=== PATIENT | female | born 1990 | race Caucasian/White ===

== ENCOUNTER → 2019-11-16 15:12 | Outpatient (CLI) | payer OTHER, SELFPAY ==
[2019-11-16 16:09] LABS: Add Manual Diff / Slide Review NO; Basophils Absolute Auto 0 /uL (0-100); Basophils Percent Auto 0.4 % (0-2); Eosinophils Absolute Auto 0 /uL (0-450); Eosinophils Percent Auto 0.2 % (2-4); Hematocrit 37.9 % (36-46); Hemoglobin 13.2 g/dL (12.0-16.0); Lymphocytes Absolute Auto 1800 /uL (1100-4500); Lymphocytes Percent Auto 22.5 % (25-40); Mean Corpuscular Hemoglobin 32.2 PG (26-34); Monocytes Absolute Auto 500 /uL (0-900); Monocytes Percent Auto 6.3 % (3-14); Neutrophils Absolute Auto 5800 /uL (1500-7000); Neutrophils Percent Auto 70.6 % (50-75); Platelet Count 311 X10^3/uL (150-400); Red Blood Cell Count 4.12 X10^6/uL (4.0-5.2); Red Cell Distribution Width 12.5 % (11.6-14.8); White Blood Cell Count 8.2 X10^3/uL (4.5-11.0)
[2019-11-16 17:24] LABS: Hepatitis B Surface Antigen NEGATIVE s/c (NEGATIVE); Rubella Antibody IgG 16.4 IU/mL (>15)
[2019-11-16 17:40] LABS: HIV 1 & 2 Ab/Ag 4th Gen Combo NEGATIVE (NEGATIVE); Hep C Virus Ab w/Reflex Quant NEGATIVE s/c (NEGATIVE)
[2019-11-16 18:35] LABS: Appearance Urine UA CLEAR; Bilirubin Urine UA NEGATIVE (NEGATIVE); Color Urine UA YELLOW; Glucose Urine UA NEGATIVE (Negative); Ketones Urine UA NEGATIVE (NEGATIVE); Leukocyte Esterase Urine UA NEGATIVE (NEGATIVE); Nitrite Urine UA NEGATIVE (Negative); Occult Blood Urine UA NEGATIVE (Negative); Protein Urine UA NEGATIVE (Negative); Specific Gravity Urine UA <=1.005 (1.000-1.035); Urobilinogen Urine UA 0.2 E.U./dL (0.2)
[2019-11-16 18:41] LABS: pH Urine UA 6.5 (4.5-8.0)
[2019-11-16 20:13] LABS: Urine N gonorrhoeae NOT DETECTED
[2019-11-16 20:27] LABS: Urine Chlamydia NOT DETECTED
[2019-11-17 04:36] LABS: RPR Screen Non Reactive (Non Reactive)
[2019-11-17 08:41] LABS: Varicella IgG Antibody 1617 index (Immune >165)
== END ==
PROVIDERS: Referring Provider Specialist; Visit Provider Specialist
DX: Z34.01 Encounter for supervision of normal first pregnancy, first trimester (principal); L65.9 Nonscarring hair loss, unspecified; Z3A.08 8 weeks gestation of pregnancy
CPT/HCPCS: 36415; 80055; 81003; 86787; 86803; 86850; 86900; 86901; 87086; 87389; 87491; 87591

== ENCOUNTER → 2019-12-14 17:02 | Outpatient (CLI) | payer OTHER, SELFPAY ==
[2019-12-14 18:45] LABS: BUN Creatinine Ratio 15.1 (6-22); Blood Urea Nitrogen 8 mg/dL (7-17); Calcium 9.4 mg/dL (8.4-10.2); Carbon Dioxide 27 mmol/L (22-32); Chloride 99 mmol/L (98-107); Estimated Glomerular Filt Rate > 60.0 mL/min (>60); Glucose 84 mg/dL (70-100); HEMOLYSIS < 15 (0-50); Potassium 3.7 mmol/L (3.4-5.1); Sodium 134 mmol/L (137-145)
[2019-12-14 18:57] LABS: Free T4, Direct Thyroxine 0.86 ng/dL (0.78-2.19)
[2019-12-14 19:11] LABS: Thyroid Stimulating Hormone 1.02 uIU/mL (0.47-4.68)
== END ==
PROVIDERS: Referring Provider Specialist; Visit Provider Specialist
DX: Z34.90 Encounter for supervision of normal pregnancy, unspecified, unspecified trimester (principal); L65.9 Nonscarring hair loss, unspecified; B37.9 Candidiasis, unspecified; E28.2 Polycystic ovarian syndrome
CPT/HCPCS: 36415; 80048; 83036; 84439; 84443

== ENCOUNTER → 2020-01-11 11:00 | Outpatient (CLI) | payer OTHER, SELFPAY ==
[2020-01-14 21:49] LABS: Gest Age on Col Date 16.4 weeks (.); Gestational Age Ultrasound (.); Insulin Dep Diabetes No (.); OSBR Risk 1IN 10000 (.); Results Report (.); Test Results *Screen Negative* (.)
== END ==
PROVIDERS: Referring Provider Specialist; Visit Provider Specialist
DX: Z34.02 Encounter for supervision of normal first pregnancy, second trimester (principal); Z3A.16 16 weeks gestation of pregnancy
CPT/HCPCS: 36415; 82105

== ENCOUNTER → 2020-02-05 16:34 | Outpatient (CLI) | payer OTHER, SELFPAY ==
--- NOTE | 2020-02-05 16:36 | DI.US.S_ITS ---
PROCEDURE: US OB >= 14 WEEKS FETUS INDICATIONS: 20 week anatomy scan OUTSIDE/PRIOR DATING DATA: Last menstrual period (LMP): 09/18/2019. LMP-based estimated date of delivery (BRITTNEY): 06/24/2020 . First dating scan (date and location): 12/03/2019 . Estimated date of delivery (BRITTNEY) from first dating scan: 06-24-20 . TECHNIQUE: Real-time scanning was performed of the fetus, with image documentation and biometric measurements. COMPARISON: [facility], , OB <= 14 WEEKS FETUS, 12/03/2019, 10:07. FINDINGS: General: A single living intrauterine gestation is present. Presentation: Breech. Placenta: Placental position is posterior , without previa. Amniotic fluid index: 13.2 cm, normal range is 5-24 cm. heart rate: 133 beats per minute. Maternal cervical canal: 4.1 cm long. Normal lower limit is 2.5 cm. biometrics: Biparietal diameter: 46 mm; 19 weeks 6 days Head circumference: 173 mm; 19 weeks 6 days Abdominal circumference: 143 mm; 19 weeks 6 days Femur length: 35 mm; 21 weeks 0 days Estimated gestational age from initial scan: 20 weeks 0 days Composite gestational age from present scan: 20 weeks 1 day Estimated weight and percentile: 346 g; 64th percentile Measurement variability for biometric dating: +/- 7 days from 14 weeks to 15 weeks 6 days gestation, +/- 10 days from 16 weeks to 21 weeks 6 days gestation, +/- 2 weeks from 22 weeks to 27 weeks 6 days gestation, +/- 3 weeks for 28 weeks gestation or later. weight reference: 4500 g or EFW >90/95% is considered macrosomia or large for gestational age. EFW <10% is small for gestational age. EFW 5% or less is considered intra-uterine growth restriction. Anatomic survey: Neuro: Ventricles are non-dilated at less than 10 mm. Cisterna magna is normal at 3-11 mm. Cerebellum is normal in size and morphology. Nuchal skin fold: Normal at less than 6 mm between 14-21 weeks gestational age. Face: Nose and lips, facial profile are normal. Spine: No evidence for spina bifida. Heart: 4-chambered heart is present, with normal ventricular outflow tracts. Diaphragm: Diaphragm is intact. Stomach: Left-sided stomach is present. Kidneys: No hydronephrosis. Normal is less than 5 mm in 2nd trimester, less than 7 mm in 3rd trimester. Cord: 3-vessel cord has orthotopic insertion. Bladder: Normal in size. Extremities: All 4 extremities identified. IMPRESSION: 1. Single living intrauterine gestation. 2. Normal survey of anatomy. Dictated by: Christopher Dutton M.D. on 02/05/2020 at 18:53 Approved by: Christopher Dutton M.D. on 02/05/2020 at 18:55
== END ==
PROVIDERS: PCP Family Medicine; Referring Provider Specialist; Visit Provider Specialist
DX: Z34.82 Encounter for supervision of other normal pregnancy, second trimester (principal); Z3A.20 20 weeks gestation of pregnancy
CPT/HCPCS: 76811

== ENCOUNTER → 2020-03-12 08:03 | Outpatient (CLI) | payer OTHER, SELFPAY ==
[2020-03-12 10:14] LABS: Hematocrit 38.3 % (36-46); Hemoglobin 13.2 g/dL (12.0-16.0)
[2020-03-12 10:38] LABS: GTT (PREG) 1 Hour PP 50gm Dose 164 mg/dL (76-139)
== END ==
PROVIDERS: PCP Family Medicine; Referring Provider Specialist; Visit Provider Specialist
DX: Z34.02 Encounter for supervision of normal first pregnancy, second trimester (principal)
CPT/HCPCS: 36415; 82950; 85014; 85018

== ENCOUNTER → 2020-03-18 07:10 | Outpatient (CLI) | payer OTHER, SELFPAY ==
[2020-03-18 08:39] LABS: Glucose Fasting Gestational 96 mg/dL (76-95)
[2020-03-18 09:44] LABS: Glucose 1 Hour Gest 211 mg/dL (76-180)
[2020-03-18 10:32] LABS: Glucose Tol Interp,Gestational INTERPRETATION
[2020-03-18 11:32] LABS: Glucose 3 Hour Gest 88 mg/dL (76-140)
[2020-03-18 11:57] LABS: Glucose 2 Hour Gest 153 mg/dL (76-155)
== END ==
PROVIDERS: PCP Family Medicine; Referring Provider Specialist; Visit Provider Specialist
DX: O99.810 Abnormal glucose complicating pregnancy (principal)
CPT/HCPCS: 82951; 82952

== ENCOUNTER 2020-05-12 09:12 | Observation (INO) | payer OTHER, SELFPAY ==
[2020-05-12 09:59] LABS: Add Manual Diff / Slide Review NO; Basophils Absolute Auto 0 /uL (0-100); Basophils Percent Auto 0.3 % (0-2); Eosinophils Absolute Auto 0 /uL (0-450); Eosinophils Percent Auto 0.3 % (2-4); Hematocrit 37.2 % (36-46); Hemoglobin 12.6 g/dL (12.0-16.0); Lymphocytes Absolute Auto 1800 /uL (1100-4500); Lymphocytes Percent Auto 20.3 % (25-40); Mean Corpuscular HGB Conc 33.8 % (30-36); Mean Corpuscular Hemoglobin 31.7 PG (26-34); Mean Corpuscular Volume 93.8 fL (80-100); Monocytes Absolute Auto 400 /uL (0-900); Monocytes Percent Auto 4.4 % (3-14); Neutrophils Absolute Auto 6400 /uL (1500-7000); Neutrophils Percent Auto 74.7 % (50-75); Platelet Count 235 X10^3/uL (150-400); Red Blood Cell Count 3.97 X10^6/uL (4.0-5.2); Red Cell Distribution Width 13.7 % (11.6-14.8); White Blood Cell Count 8.6 X10^3/uL (4.5-11.0)
[2020-05-12 10:19] LABS: Alanine Aminotransferase 15 IU/L (<35); Albumin 3.4 g/dL (3.5-5.0); Albumin Globulin Ratio 1.1 (1.0-2.8); Alkaline Phosphatase 82 U/L (38-126); Aspartate Aminotransferase 24 IU/L (14-36); BUN Creatinine Ratio 13.7 (6-22); Bilirubin Total 0.2 mg/dL (0.2-1.3); Blood Urea Nitrogen 7 mg/dL (7-17); Calcium 8.5 mg/dL (8.4-10.2); Carbon Dioxide 25 mmol/L (22-32); Chloride 106 mmol/L (98-107); Estimated Glomerular Filt Rate > 60.0 mL/min (>60); Glucose 96 mg/dL (70-100); HEMOLYSIS < 15 (0-50); Lactate Dehydrogenase 447 U/L (313-618); Potassium 3.5 mmol/L (3.4-5.1); Sodium 133 mmol/L (137-145); Total Protein 6.4 g/dL (6.3-8.2); Uric Acid 3.5 mg/dL (2.5-6.2)
[2020-05-12 10:29] LABS: Creatinine Urine Random 71.2 mg/dL; Protein (Total) Urine Random 13 mg/dL (0-12); Protein Creatinine Ratio Urine 0.18 GRAM/24H
--- NOTE | 2020-05-12 10:34 | PM.OBTRLD ---
Visit Information Visit Information Date of evaluation: 05/12/20 Primary OB Provider: Sandy Lawson On-call OB Provider: Janeth Thomas Reason for Evaluation: Yes non-stress test Comments/Additional reasons for admission: Patient is a 29-year-old at 33 weeks gestation presenting after wrist cuff blood pressure cuff at home showed severely elevated blood pressures in the 170s over 120s. Patient has a history of GDM A1, no other complications or history of hypertension. Reports mild headache, no obstetrical complaints. Vital Signs Vital Signs: 133/86, 110/70, hr 82 PFSH Medical History Anxiety Chicken pox (~1992) Depression Elevated blood pressure reading in office with white coat syndrome, with diagnosis of hypertension Fracture of left wrist Frequent epistaxis (~09/2019) Hair loss (~09/2019) Heavy menstrual period Hx of being hospitalized Ovarian cyst (~2008) Wears glasses Yeast infection (~2018) Surgical History Anesthesia H/O wisdom tooth extraction (~2010) History of tonsillectomy (~1997) Family History Mother Hyperlipidemia Hypertension Lupus (systemic lupus erythematosus) Neuropathy Depression Grandmother Cancer Lung cancer Smoker Breast cancer Grandfather Unknown whether patient has any health problems Family estrangement Father Unknown whether patient has any health problems Family estrangement Grandfather Family estrangement Unknown whether patient has any health problems Grandmother Breast cancer Family estrangement Family/Other Congenital heart anomaly IV drug user Status post cardiac surgery Sister Bipolar 1 disorder Social History marital status: number of children: 0 household members: spouse lives independently: No pets and animals: Yes (X 2 small dogs) education level: college (BA Degree) occupational status: employed current occupational exposures/hazards: Yes 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 Smoking Status: Never smoker second hand exposure: No alcohol intake: former (pre- : occasional w/social) substance use type: does not use Review of Systems Constitutional Constitutional: Reports as per HPI Cardiovascular Cardiovascular: Reports system reviewed and no additional complaints, except as documented Respiratory Respiratory: Reports system reviewed and no additional complaints, except as documented Gastrointestinal Gastrointestinal: Reports system reviewed and no additional complaints, except as documented Objective Labs Result Diagrams: 05/12/20 09:45 05/12/20 09:45 Labs: Laboratory Results - last 24 hr 05/12/20 05/12/20 05/12/20 09:41 09:41 09:45 WBC Cancelled RBC Cancelled Hgb Cancelled Hct Cancelled MCV Cancelled MCH Cancelled MCHC Cancelled RDW Cancelled Plt Count Cancelled Neut % (Auto) Cancelled Lymph % (Auto) Cancelled Blount % (Auto) Cancelled Eos % (Auto) Cancelled Baso % (Auto) Cancelled Neut # (Auto) Cancelled Lymph # (Auto) Cancelled Blount # (Auto) Cancelled Eos # (Auto) Cancelled Baso # (Auto) Cancelled Sodium Potassium Chloride Carbon Dioxide BUN Cancelled Creatinine Cancelled Estimated GFR Cancelled BUN/Creatinine Ratio Cancelled Glucose Uric Acid Cancelled Calcium Total Bilirubin AST Cancelled ALT Alkaline Phosphatase Lactate Dehydrogenase Total Protein Albumin Globulin Albumin/Globulin Ratio U Random Total Protein 13 H Urine Creatinine 71.2 Protein/Creatinin Ratio 0.18 05/12/20 05/12/20 09:45 09:45 WBC 8.6 RBC 3.97 L Hgb 12.6 Hct 37.2 MCV 93.8 MCH 31.7 MCHC 33.8 RDW 13.7 Plt Count 235 Neut % (Auto) 74.7 Lymph % (Auto) 20.3 L Blount % (Auto) 4.4 Eos % (Auto) 0.3 L Baso % (Auto) 0.3 Neut # (Auto) 6400 Lymph # (Auto) 1800 Blount # (Auto) 400 Eos # (Auto) 0 Baso # (Auto) 0 Sodium 133 L Potassium 3.5 Chloride 106 Carbon Dioxide 25 BUN 7 Creatinine 0.51 L Estimated GFR > 60.0 BUN/Creatinine Ratio 13.7 Glucose 96 Uric Acid 3.5 Calcium 8.5 Total Bilirubin 0.2 AST 24 ALT 15 Alkaline Phosphatase 82 Lactate Dehydrogenase 447 Total Protein 6.4 Albumin 3.4 L Globulin 3.0 Albumin/Globulin Ratio 1.1 U Random Total Protein Urine Creatinine Protein/Creatinin Ratio Evaluation Evaluation Baseline heart rate: 125 Variability: Moderate (11-25) monitor accelerations: Present monitor decelerations: Absent Category of Tracing: Reactive Status: Category l Laboratory results: Laboratory Tests 05/12/20 05/12/20 05/12/20 09:41 09:41 09:45 WBC Cancelled RBC Cancelled Hgb Cancelled Hct Cancelled MCV Cancelled MCH Cancelled MCHC Cancelled RDW Cancelled Plt Count Cancelled Neut % (Auto) Cancelled Lymph % (Auto) Cancelled Blount % (Auto) Cancelled Eos % (Auto) Cancelled Baso % (Auto) Cancelled Neut # (Auto) Cancelled Lymph # (Auto) Cancelled Blount # (Auto) Cancelled Eos # (Auto) Cancelled Baso # (Auto) Cancelled Sodium Potassium Chloride Carbon Dioxide BUN Cancelled Creatinine Cancelled Estimated GFR Cancelled BUN/Creatinine Ratio Cancelled Glucose Uric Acid Cancelled Calcium Total Bilirubin AST Cancelled ALT Alkaline Phosphatase Lactate Dehydrogenase Total Protein Albumin Globulin Albumin/Globulin Ratio U Random Total Protein 13 H Urine Creatinine 71.2 Protein/Creatinin Ratio 0.18 05/12/20 05/12/20 09:45 09:45 WBC 8.6 RBC 3.97 L Hgb 12.6 Hct 37.2 MCV 93.8 MCH 31.7 MCHC 33.8 RDW 13.7 Plt Count 235 Neut % (Auto) 74.7 Lymph % (Auto) 20.3 L Blount % (Auto) 4.4 Eos % (Auto) 0.3 L Baso % (Auto) 0.3 Neut # (Auto) 6400 Lymph # (Auto) 1800 Blount # (Auto) 400 Eos # (Auto) 0 Baso # (Auto) 0 Sodium 133 L Potassium 3.5 Chloride 106 Carbon Dioxide 25 BUN 7 Creatinine 0.51 L Estimated GFR > 60.0 BUN/Creatinine Ratio 13.7 Glucose 96 Uric Acid 3.5 Calcium 8.5 Total Bilirubin 0.2 AST 24 ALT 15 Alkaline Phosphatase 82 Lactate Dehydrogenase 447 Total Protein 6.4 Albumin 3.4 L Globulin 3.0 Albumin/Globulin Ratio 1.1 U Random Total Protein Urine Creatinine Protein/Creatinin Ratio Diagnosis, Plan/Disposition Plan/Disposition Plan: Patient seen for hypertension at home in the setting of headache. Headache improved with Tylenol, normotensive here with normal preeclampsia labs. Precautions for return discussed, patient to aquire arm cuff blood pressure cuff. OB Disposition: home
[2020-05-12] MEDS: ACETAMINOPHEN 325 MG TABLET 650 MG PO (10:47)
[2020-05-12] MEDS: METOCLOPRAMIDE HCL 10 MG TABLET PO (10:48)
== END 2020-05-12 10:55 | disposition home or self-care (01) ==
PROVIDERS: Admitting Provider Obstetrics & Gynecology; PCP Family Medicine; Referring Provider Allergy & Immunology; Visit Provider Obstetrics & Gynecology
DX: O26.893 Other specified pregnancy related conditions, third trimester (principal); R51.9 Headache, unspecified; R03.0 Elevated blood-pressure reading, without diagnosis of hypertension; Z3A.33 33 weeks gestation of pregnancy
CPT/HCPCS: 36415; 59025; 80053; 82570; 83615; 84156; 84550; 85025; G0378; G0379

== ENCOUNTER → 2020-05-27 13:18 | Outpatient (CLI) | payer OTHER, SELFPAY ==
[2020-05-28 13:17] LABS: Strep Grp B PCR NEG for Grp B Strep
== END ==
PROVIDERS: PCP Family Medicine; Visit Provider Specialist
DX: Z34.03 Encounter for supervision of normal first pregnancy, third trimester (principal); Z3A.36 36 weeks gestation of pregnancy
CPT/HCPCS: 87653

== ENCOUNTER → 2020-05-27 16:51 | Outpatient (CLI) | payer OTHER, SELFPAY ==
[2020-05-27 18:08] LABS: Add Manual Diff / Slide Review NO; Basophils Absolute Auto 0 /uL (0-100); Basophils Percent Auto 0.3 % (0-2); Eosinophils Absolute Auto 0 /uL (0-450); Eosinophils Percent Auto 0.2 % (2-4); Hematocrit 37.4 % (36-46); Lymphocytes Absolute Auto 2400 /uL (1100-4500); Lymphocytes Percent Auto 23.8 % (25-40); Mean Corpuscular HGB Conc 34.7 % (30-36); Mean Corpuscular Hemoglobin 32.8 PG (26-34); Mean Corpuscular Volume 94.6 fL (80-100); Monocytes Absolute Auto 600 /uL (0-900); Monocytes Percent Auto 5.8 % (3-14); Neutrophils Absolute Auto 7000 /uL (1500-7000); Neutrophils Percent Auto 69.9 % (50-75); Platelet Count 248 X10^3/uL (150-400); Red Blood Cell Count 3.96 X10^6/uL (4.0-5.2); Red Cell Distribution Width 13.5 % (11.6-14.8); White Blood Cell Count 10.1 X10^3/uL (4.5-11.0)
[2020-05-27 18:24] LABS: Alanine Aminotransferase 15 IU/L (<35); Aspartate Aminotransferase 23 IU/L (14-36); BUN Creatinine Ratio 21.6 (6-22); Blood Urea Nitrogen 11 mg/dL (7-17); Estimated Glomerular Filt Rate > 60.0 mL/min (>60); Uric Acid 3.5 mg/dL (2.5-6.2)
== END ==
PROVIDERS: PCP Family Medicine; Referring Provider Specialist; Visit Provider Specialist
DX: O16.3 Unspecified maternal hypertension, third trimester (principal); Z3A.36 36 weeks gestation of pregnancy
CPT/HCPCS: 36415; 82565; 84450; 84460; 84520; 84550; 85025; 87653

== ENCOUNTER 2020-05-30 04:57 | Outpatient (CLI) | payer OTHER, SELFPAY ==
[2020-05-30] MEDS: ACETAMINOPHEN 325 MG TABLET 975 MG PO (05:35)
[2020-05-30] MEDS: METOCLOPRAMIDE HCL 10 MG TABLET PO (05:36)
== END 2020-05-30 05:50 | disposition home or self-care (01) ==
LOC: OB 05-31 06:39
PROVIDERS: PCP Family Medicine; Referring Provider Nurse Practitioner Obstetrics & Gynecology; Visit Provider Nurse Practitioner Obstetrics & Gynecology
DX: O24.419 Gestational diabetes mellitus in pregnancy, unspecified control (principal); O16.3 Unspecified maternal hypertension, third trimester; O99.213 Obesity complicating pregnancy, third trimester; R51.9 Headache, unspecified; Z3A.36 36 weeks gestation of pregnancy
CPT/HCPCS: 59025; G0378; G0379

== ENCOUNTER 2020-06-03 10:56 | Outpatient (CLI) | payer OTHER, SELFPAY | END 2020-06-03 12:06 | disposition home or self-care (01) | LOC: LABOR 11:39 → OB 06-06 09:07 | PROVIDERS: PCP Family Medicine; Referring Provider Specialist; Visit Provider Specialist | DX: O13.3 Gestational [pregnancy-induced] hypertension without significant proteinuria, third trimester (principal); R51.9 Headache, unspecified; O99.213 Obesity complicating pregnancy, third trimester; O24.419 Gestational diabetes mellitus in pregnancy, unspecified control; Z3A.37 37 weeks gestation of pregnancy | CPT/HCPCS: 36415; 59025; 82565; 84156; 84450; 84460; 84520; 84550; 85025; G0378; G0379 ==

== ENCOUNTER → 2020-06-03 14:57 | Outpatient (CLI) | payer OTHER, SELFPAY ==
[2020-06-03 15:43] LABS: Add Manual Diff / Slide Review NO; Basophils Absolute Auto 0 /uL (0-100); Basophils Percent Auto 0.4 % (0-2); Eosinophils Absolute Auto 0 /uL (0-450); Eosinophils Percent Auto 0.2 % (2-4); Hematocrit 37.8 % (36-46); Hemoglobin 12.8 g/dL (12.0-16.0); Lymphocytes Absolute Auto 1900 /uL (1100-4500); Lymphocytes Percent Auto 22.4 % (25-40); Mean Corpuscular HGB Conc 33.9 % (30-36); Mean Corpuscular Hemoglobin 32.5 PG (26-34); Mean Corpuscular Volume 95.8 fL (80-100); Monocytes Absolute Auto 400 /uL (0-900); Monocytes Percent Auto 4.8 % (3-14); Neutrophils Absolute Auto 6200 /uL (1500-7000); Neutrophils Percent Auto 72.2 % (50-75); Platelet Count 228 X10^3/uL (150-400); Red Blood Cell Count 3.95 X10^6/uL (4.0-5.2); Red Cell Distribution Width 13.7 % (11.6-14.8); White Blood Cell Count 8.6 X10^3/uL (4.5-11.0)
[2020-06-03 16:06] LABS: Alanine Aminotransferase 20 IU/L (<35); Aspartate Aminotransferase 31 IU/L (14-36); BUN Creatinine Ratio 19.2 (6-22); Blood Urea Nitrogen 10 mg/dL (7-17); Estimated Glomerular Filt Rate > 60.0 mL/min (>60); Uric Acid 4.2 mg/dL (2.5-6.2)
[2020-06-06 09:03] LABS: 24 Hour Ur Protein Calculated 271 mg/24 hr (30-150)
== END ==
PROVIDERS: PCP Family Medicine; Referring Provider Specialist; Visit Provider Specialist
DX: O16.3 Unspecified maternal hypertension, third trimester (principal)
CPT/HCPCS: 36415; 82565; 84156; 84450; 84460; 84520; 84550; 85025

== ENCOUNTER 2020-06-07 14:29 | Outpatient (CLI) | payer OTHER, SELFPAY ==
--- NOTE | 2020-06-07 15:34 | PM.OBTRLD ---
Visit Information Visit Information Date of evaluation: 06/07/20 Primary OB Provider: Sandy Lawson Reason for Evaluation: Yes non-stress test non-stress test reason: hypertension/pre-eclampsia Vital Signs Vital Signs: Blood pressure is markedly improved over blood pressures in office high of diastolic of 85 PFSH Medical History Anxiety Chicken pox (~1992) Depression Elevated blood pressure reading in office with white coat syndrome, with diagnosis of hypertension Fracture of left wrist Frequent epistaxis (~09/2019) Hair loss (~09/2019) Heavy menstrual period Hx of being hospitalized Ovarian cyst (~2008) Wears glasses Yeast infection (~2018) Surgical History Anesthesia H/O wisdom tooth extraction (~2010) History of tonsillectomy (~1997) Family History Mother Hyperlipidemia Hypertension Lupus (systemic lupus erythematosus) Neuropathy Depression Grandmother Cancer Lung cancer Smoker Breast cancer Grandfather Unknown whether patient has any health problems Family estrangement Father Unknown whether patient has any health problems Family estrangement Grandfather Family estrangement Unknown whether patient has any health problems Grandmother Breast cancer Family estrangement Family/Other Congenital heart anomaly IV drug user Status post cardiac surgery Sister Bipolar 1 disorder Social History marital status: number of children: 0 household members: spouse lives independently: No pets and animals: Yes (X 2 small dogs) education level: college (BA Degree) occupational status: employed current occupational exposures/hazards: Yes 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 Good movement, tone, breathing Evaluation Evaluation Baseline heart rate: 120 monitor accelerations: Present monitor decelerations: Absent Contraction Frequency (minutes): 0 Category of Tracing: Reactive Status: Category l Diagnosis, Plan/Disposition Final Diagnosis (1) Hypertension affecting in third trimester: Status: Acute Plan/Disposition Plan: Reactive nonstress test, borderline low ATIYA, biophysical profile of 01/08. Patient is scheduled for induction with Cervidil in 2 days. OB Disposition: home
== END 2020-06-07 15:35 | disposition home or self-care (01) ==
LOC: LABOR 15:45 → OB 06-08 06:47
PROVIDERS: PCP Family Medicine; Referring Provider Specialist; Visit Provider Specialist
DX: O13.3 Gestational [pregnancy-induced] hypertension without significant proteinuria, third trimester (principal); O24.419 Gestational diabetes mellitus in pregnancy, unspecified control; O99.213 Obesity complicating pregnancy, third trimester; Z3A.37 37 weeks gestation of pregnancy
CPT/HCPCS: 59025; 76815; G0378; G0379

== ENCOUNTER 2020-06-09 18:42 | Inpatient (IN) | payer OTHER, SELFPAY ==
[2020-06-09 20:00] VITALS: BP 131/79
[2020-06-09 20:02] LABS: Add Manual Diff / Slide Review NO; Basophils Absolute Auto 100 /uL (0-100); Basophils Percent Auto 0.7 % (0-2); Eosinophils Absolute Auto 0 /uL (0-450); Eosinophils Percent Auto 0.4 % (2-4); Hematocrit 37.7 % (36-46); Hemoglobin 13.1 g/dL (12.0-16.0); Lymphocytes Absolute Auto 2400 /uL (1100-4500); Lymphocytes Percent Auto 21.9 % (25-40); Mean Corpuscular HGB Conc 34.8 % (30-36); Mean Corpuscular Hemoglobin 33.3 PG (26-34); Mean Corpuscular Volume 95.7 fL (80-100); Monocytes Absolute Auto 600 /uL (0-900); Monocytes Percent Auto 5.4 % (3-14); Neutrophils Absolute Auto 7900 /uL (1500-7000); Neutrophils Percent Auto 71.6 % (50-75); Platelet Count 234 X10^3/uL (150-400); Red Blood Cell Count 3.94 X10^6/uL (4.0-5.2); Red Cell Distribution Width 13.2 % (11.6-14.8)
[2020-06-09] MEDS: DINOPROSTONE VAG (CERVIDIL) 10 MG VAG (20:13)
[2020-06-09 20:15] LABS: COVID19 -Nasal RAPID Negative (Negative)
[2020-06-09] MEDS: ZOLPIDEM 5 MG TABLET PO (22:59)
--- NOTE | 2020-06-10 07:04 | P.HPOB_ITS ---
OB HPI Date/Time Date of admission: 06/09/20 Date Patient Seen: 06/10/20 Time Patient Seen: 07:04 History of Present Condition Chief complaint: labor : 1 Para: 0 Estimated Date of Delivery: 06/24/20 Estimated Gestational Age (weeks): 38 Narrative: Loreta Muse is a 29 year old female admitted for induction for c hronic hypertension Indications Indication for induction OB: medical complication (Chronic hypertension, diet- controlled gestational diabetes) Other reason(s) for admission: grade 3 placenta changes with decreasing amniotic fluid History of Present care: good care, initiated at week # (8), number of visits (14) and cesar nds weight gain (38) Obstetrical complications: gestational diabetes and other ( chronic hypertension) Preadmission Labs Blood type: O (+) positive -: Antibody screen: negative, GBS status: negative, HBsAG: negative, HIV: negative and RPR/VDLR: negative -: Chlamydia screen: not detected and Gonorrhea screen: not detected -: Rubella: immune and Varicella: immune HCAB: negative Cell-free DNA: normal male 1 hr GTT: 164 Narrative: 3 hour glucose tolerance test with 2 abnormal values. Patient monitor blood sugars and diet and did not require additional medication. Evaluation Evaluation Baseline heart rate: 130 Variability: Moderate (11-25) monitor accelerations: Present monitor decelerations: Absent Contraction Frequency (minutes): 5 Uterine Contraction Intensity: Mild Category of Tracing: Reactive Status: Category l Cervical dilation (cm): 0 Cervical effacement (%): 50 station: -1 Laboratory results: Laboratory Tests 06/09/20 06/09/20 06/09/20 19:40 19:40 19:40 WBC 11.0 RBC 3.94 L Hgb 13.1 Hct 37.7 MCV 95.7 MCH 33.3 MCHC 34.8 RDW 13.2 Plt Count 234 Neut % (Auto) 71.6 Lymph % (Auto) 21.9 L [place] % (Auto) 5.4 Eos % (Auto) 0.4 L Baso % (Auto) 0.7 Neut # (Auto) 7900 H Lymph # (Auto) 2400 [place] # (Auto) 600 Eos # (Auto) 0 Baso # (Auto) 100 SARS-CoV-2 (PCR) Negative Blood Type O Positive Antibody Screen Negative [facility] Medical History Anxiety Chicken pox (~1992) Depression Elevated blood pressure reading in office with white coat syndrome, with diagnosis of hypertension Fracture of left wrist Frequent epistaxis (~09/2019) Hair loss (~09/2019) Heavy menstrual period Hx of being hospitalized Ovarian cyst (~2008) Wears glasses Yeast infection (~2018) Surgical History Anesthesia H/O wisdom tooth extraction (~2010) History of tonsillectomy (~1997) Family History Mother Hyperlipidemia Hypertension Lupus (systemic lupus erythematosus) Neuropathy Depression Grandmother Cancer Lung cancer Smoker Breast cancer Grandfather Unknown whether patient has any health problems Family estrangement Father Unknown whether patient has any health problems Family estrangement Grandfather Family estrangement Unknown whether patient has any health problems Grandmother Breast cancer Family estrangement Family/Other Congenital heart anomaly IV drug user Status post cardiac surgery Sister Bipolar 1 disorder Social History marital status: number of children: 0 household members: spouse lives independently: No pets and animals: Yes (X 2 small dogs) education level: college (BA Degree) occupational status: employed current occupational exposures/hazards: Yes 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 Smoking Status: Never smoker second hand exposure: No alcohol intake: former (pre- : occasional w/social) substance use type: does not use Meds Home Medications and Allergies Home Medications Medication Instructions Recorded Confirmed Type cetirizine 10 mg tablet 10 mg PO DAILY 11/09/19 06/09/20 History montelukast 10 mg tablet 10 mg PO DAILY 11/09/19 06/09/20 History prenat.vits,cosmo,mnc-sewg-dqjkx 1 tab PO DAILY 11/09/19 06/09/20 History omeprazole 40 mg capsule,delayed 40 mg PO DAILY #30 cap 02/08/20 06/09/20 Rx release odemwfwxnk-idaydkalmpjjh-clhirlyf 1 tab PO Q4-6H PRN #20 tab 06/01/20 06/09/20 R x 50 mg-325 mg-40 mg tablet labetalol 200 mg PO TID 06/09/20 06/09/20 History Allergies Allergy/AdvReac Type Severity Reaction Status Date / Time No Known Drug Allergies Allergy Verified 06/09/20 20:01 Review of Systems Review of Systems Narrative: Patient continues to have a headache. No current scotomata or epigastric pain. Good movement. No leakage of fluid. ROS: Yes All systems reviewed with the patient and are negative except as otherwise documented Exam Vital Signs (past 8 hours): Blood pressure 110/65, pulse 71, temperature 36.1? Narrative Exam Narrative: HEENT exam within normal limits. Lungs are clear to auscultation percussion. Heart is regular rate and rhythm no S3-S4 or murmurs. Abdomen is gravid. Fetus is vertex. Trace edema with normal DTRs. Objective Labs Result Diagrams: 06/09/20 19:40 Labs: Laboratory Results - last 24 hr 06/09/20 06/09/20 06/09/20 19:40 19:40 19:40 WBC 11.0 RBC 3.94 L Hgb 13.1 Hct 37.7 MCV 95.7 MCH 33.3 MCHC 34.8 RDW 13.2 Plt Count 234 Neut % (Auto) 71.6 Lymph % (Auto) 21.9 L [place] % (Auto) 5.4 Eos % (Auto) 0.4 L Baso % (Auto) 0.7 Neut # (Auto) 7900 H Lymph # (Auto) 2400 [place] # (Auto) 600 Eos # (Auto) 0 Baso # (Auto) 100 SARS-CoV-2 (PCR) Negative Blood Type O Positive Antibody Screen Negative Assessment and Plan Assessment and Plan Assessment and Plan narrative: 38 week gestation with diet-controlled gestational diabetes, chronic hypertension with headache, decreased amniotic fluid, grade 3 placenta for induction. Patient received Cervidil overnight. The plan was Pitocin this morning however due to staff shortage unclear when this will be started. may consider Acuna bulb or additional prostaglandins if cervix does not become more favorable.
[2020-06-10] MEDS: LABETALOL 100 MG TABLET 200 MG PO ×2 (08:34→21:00)
[2020-06-10] MEDS: LACTATED RINGERS 1,000 ML 100 ML IV (13:10)
[2020-06-10] MEDS: OXYTOCIN PREMIX 30 UNIT/500 ML PLAST..BAG IV (13:11)
[2020-06-10] MEDS: LABETALOL 100 MG TABLET PO (14:56)
--- NOTE | 2020-06-10 17:27 | PM.OBPNLAB ---
Date/Time Date Patient Seen: 06/10/20 Time Patient Seen: 17:27 Pain Control Pain control: tolerating well Pelvic Exam Dilation (cm): 1 Effacement (%): 80 station: -1 Amniotic membrane status: Intact Contractions Contractions on admission: regular Monitor mode: External Pitocin rate (mU/min): 9 Contraction frequency (min): 4 Contraction duration (min): 1 Contraction pattern: Regular Contraction intensity: Mild Status status: Category l Heart Rate Baseline: 130 Monitor Accelerations: Present Monitor Decelerations: Absent Monitor Variability: Moderate Assessment and Plan Assessment: induction ongoing Plan: continuous present management Comments: Will continue Pitocin for now. If not in active labor will switch to oral Cytotec tonight and restart Pitocin in the morning.
--- NOTE | 2020-06-10 17:29 | PM.OBPNLAB ---
Date/Time Date Patient Seen: 06/10/20 Time Patient Seen: 09:00 Pain Control Pain control: tolerating well Pelvic Exam Dilation (cm): 1 Effacement (%): 80 station: -1 Amniotic membrane status: Intact Contractions Contractions on admission: none Monitor mode: External Contraction frequency (min): 4 Contraction pattern: Regular Contraction intensity: Mild Status status: Category l Heart Rate Baseline: 130 Monitor Accelerations: Present Monitor Decelerations: Absent Monitor Variability: Moderate Assessment and Plan Assessment: induction ongoing Comments: Attempt was made to place a Acuna bulb for induction. I was unable to place the Acuna bulb. Decision was made to begin Pitocin. However due to the extreme business of the unit it may be some time before that is Pitocin will be begun.
[2020-06-10 21:00] VITALS: BP 137/89; PULSE 67
[2020-06-10] MEDS: miSOPROStoL 25 MCG TABLET 50 MCG PO (21:15)
[2020-06-10] MEDS: ZOLPIDEM 5 MG TABLET PO (22:20)
[2020-06-11] MEDS: miSOPROStoL 25 MCG TABLET 50 MCG PO ×2 (01:13→05:12)
[2020-06-11] MEDS: ONDANSETRON 4 MG/2 ML INJ IV (04:32)
[2020-06-11 09:04] VITALS: BP 142/76; PULSE 92
[2020-06-11] MEDS: LABETALOL 100 MG TABLET 200 MG PO ×2 (09:04→22:30)
--- NOTE | 2020-06-11 09:31 | PM.OBPNLAB ---
Date/Time Date Patient Seen: 06/11/20 Time Patient Seen: 09:31 Pain Control Pain control: tolerating well Pelvic Exam Amniotic membrane status: Ruptured Comments: SROM for clear fluid 1700 on 06/10. Exam deferred as patient not feeling contractions. Contractions Monitor mode: External Contraction frequency (min): 2 Contraction pattern: Regular Contraction intensity: Mild Status status: Category ll Heart Rate Baseline: 125 Monitor Accelerations: Present Monitor Decelerations: Variable Monitor Variability: Moderate Assessment and Plan Assessment: induction ongoing Plan: continuous present management Comments: Patient is now s/p 12 hours of cervidil on admission, attempted placement of laguna bulb which patient could not tolerate, 3 doses of oral cytotec, and SROM for clear fluid. She is having irregular contractions which she does not feel, and cervical exam was deferred to minimize exams due to SROM. We discussed this morning that the remaining step for labor induction is pitocin. We discussed the risk of intolerance of labor given her cHTN and her GDMA1 and their effect on the placenta, and the patient and her partner vocalized understanding. No signs or symptoms of superimposed PEC this AM, with BPs at her baseline of 130s-140s/70s-90s.
[2020-06-11] MEDS: OXYTOCIN PREMIX 30 UNIT/500 ML PLAST..BAG IV (10:09)
[2020-06-11] MEDS: LACTATED RINGERS 1,000 ML 100 ML IV ×2 (13:21→17:16)
[2020-06-11 17:35] VITALS: PULSE 130
--- NOTE | 2020-06-11 17:55 | PM.OBPRVD ---
Events: Gestational Diabetes, Induced HTN (Chronic hypertension), Labor Induction and Low Fluid Volume in Sac Labor & Delivery Delivery date: 06/11/20 Cervical ripening method: per Cervidil protocol Induction method: per pitocin protocol Delivery monitor: external FHT and external uterine Route of delivery: vacuum extraction Indication for instrumentation: nonreassuring FHR tracing L&D Laceration Description: None Estimated blood loss (mL): 300 Anesthesia Type: Epidural Narrative: Patient arrived on Labor and delivery for induction for chronic hypertension, diet-controlled gestational diabetes, decreased amniotic fluid. Patient had Cervidil placed followed by Pitocin. She did not progress so she had oral Cytotec after rupture membranes. Pitocin was restarted. The patient received an epidural catheter for pain control. heart tones category 1 to category 2 throughout labor. She had episodes of late decelerations and decreased miht-lz-wqyo variability but responded to resuscitation methods. When the patient became complete and pushing the fetus began having increasing late deceleration so decision was made to assist the delivery with vacuum extraction. The vacuum was placed and with 1 contraction the viable male was delivered over an intact perineum. The infant was placed on maternal abdomen. After the cord stopped pulsating the cord was clamped, cut, and cord bloods obtained. The placenta delivered spontaneously, intact, with 3 vessels. There were no cervical, vaginal, or perineal tears. Both infant mother doing well. Baby 1: gender: Male Presentation: vertex Position: Right Occiput Anterior Placenta delivery description: Spontaneous Cord Vessel Description: 3 Vessels score (1 min): 8 score (5 min): 9 Plan for aftercare: Routine care
[2020-06-11 22:11] VITALS: BP 115/62
[2020-06-11] MEDS: DERMOPLAST SPRAY 20% 60 ML 1 SPRAY TOP (22:29)
[2020-06-11] MEDS: LANOLIN OINT 7 GM 1 APPLIC TOP (22:29)
[2020-06-11 22:30] VITALS: BP 119/71; PULSE 70
[2020-06-11] MEDS: IBUPROFEN 600 MG TABLET PO (22:31)
[2020-06-12] MEDS: IBUPROFEN 600 MG TABLET PO (06:20)
[2020-06-12 06:27] LABS: Add Manual Diff / Slide Review NO; Basophils Absolute Auto 100 /uL (0-100); Basophils Percent Auto 0.4 % (0-2); Eosinophils Absolute Auto 0 /uL (0-450); Eosinophils Percent Auto 0.2 % (2-4); Hematocrit 32.2 % (36-46); Hemoglobin 10.9 g/dL (12.0-16.0); Lymphocytes Absolute Auto 2300 /uL (1100-4500); Lymphocytes Percent Auto 16.1 % (25-40); Mean Corpuscular HGB Conc 33.7 % (30-36); Mean Corpuscular Hemoglobin 32.5 PG (26-34); Mean Corpuscular Volume 96.5 fL (80-100); Monocytes Absolute Auto 800 /uL (0-900); Neutrophils Absolute Auto 10900 /uL (1500-7000); Neutrophils Percent Auto 77.3 % (50-75); Platelet Count 191 X10^3/uL (150-400); Red Blood Cell Count 3.34 X10^6/uL (4.0-5.2); Red Cell Distribution Width 13.9 % (11.6-14.8); White Blood Cell Count 14.1 X10^3/uL (4.5-11.0)
[2020-06-12 06:40] LABS: Alanine Aminotransferase 16 IU/L (<35); Albumin Globulin Ratio 1.2 (1.0-2.8); Alkaline Phosphatase 89 U/L (38-126); Aspartate Aminotransferase 28 IU/L (14-36); BUN Creatinine Ratio 15.3 (6-22); Bilirubin Total 0.2 mg/dL (0.2-1.3); Blood Urea Nitrogen 9 mg/dL (7-17); Calcium 8.8 mg/dL (8.4-10.2); Carbon Dioxide 30 mmol/L (22-32); Chloride 107 mmol/L (98-107); Estimated Glomerular Filt Rate > 60.0 mL/min (>60); Globulin 2.6 g/dL (1.7-4.1); Glucose 87 mg/dL (70-100); HEMOLYSIS < 15 (0-50); Potassium 4.3 mmol/L (3.4-5.1); Sodium 137 mmol/L (137-145); Total Protein 5.6 g/dL (6.3-8.2)
--- NOTE | 2020-06-12 08:48 | P.DS_ITS ---
Discharge Providers Provider Date of admission: 06/09/20 18:42 Discharge Date: 06/12/20 Primary care physician: Marisa Laguerre MD Consults: 06/12/20 17:48 Consult to Patient Safety Officer Routine Comment: Discharge provider: Janeth Thomas MD Summary Hospital Course Date Patient Seen: 06/12/20 Time Patient Seen: 08:49 Diagnoses: gestational hypertension, GDMA1 Hospital Course: This patient was admitted for induction of labor for gestational hypertension and GDMA1. She was induced with cervidil, vaginal cytotec, and pitocin, before progressing and delivering a healthy 5#6 baby boy via VAVD over an intact perineum. Her course was uncomplicated, and she was discharged on PPD#1 on 200mg labetalol BID after evaluation of her blood pressures. Peripartum Data Infant Delivery Method: Natural Vaginal Laceration Description: None Procedures: vacuum assisted vaginal delivery. complications: none [place]: Gender: Male Disposition of : home Status at Discharge Cognitive/behavioral status at discharge: oriented Functional status at discharge: independent ambulation Overall status at discharge: patient is progressing back to baseline Time Spent with Patient Time attestation: Total time spent providing and/or coordinating discharge services: Objective Labs Result Diagrams: 06/12/20 06:15 06/12/20 06:15 Labs: Laboratory Results - last 24 hr 06/12/20 06/12/20 06:15 06:15 WBC 14.1 H RBC 3.34 L Hgb 10.9 L Hct 32.2 L MCV 96.5 MCH 32.5 MCHC 33.7 RDW 13.9 Plt Count 191 Neut % (Auto) 77.3 H Lymph % (Auto) 16.1 L [place] % (Auto) 6.0 Eos % (Auto) 0.2 L Baso % (Auto) 0.4 Neut # (Auto) 39697 H Lymph # (Auto) 2300 [place] # (Auto) 800 Eos # (Auto) 0 Baso # (Auto) 100 Sodium 137 Potassium 4.3 Chloride 107 Carbon Dioxide 30 BUN 9 Creatinine 0.59 Estimated GFR > 60.0 BUN/Creatinine Ratio 15.3 Glucose 87 Calcium 8.8 Total Bilirubin 0.2 AST 28 ALT 16 Alkaline Phosphatase 89 Total Protein 5.6 L Albumin 3.0 L Globulin 2.6 Albumin/Globulin Ratio 1.2 Exam Vital Signs (past 8 hours): 110s/70s overnight, 130s/80s-90s this AM Narrative Exam Narrative: Patient sore from pushing but minimal cramping, moderate lochia, ambulating, voiding, passing flatus this AM. No BRADY, visual changes, chest pain, SOB, RUQ pain. Const General: cooperative, healthy appearing and comfortable Resp Effort & Inspection: normal respiratory effort Auscultation: clear to auscultation bilaterally Cardio Rate: regular rate Rhythm: regular rhythm GI Palpation: soft and No tender Other: fundus firm, well below u Skin General: no rashes or lesions noted Discharge Plan Discharge Plan Patient Disposition: Home Discharge orders & Medications Prescriptions: Continued prenat.vits,cosmo,row-cyeh-ennim Tablet 1 tab PO DAILY RF: 0 cetirizine [Zyrtec] 10 mg tablet 10 mg PO DAILY RF: 0 montelukast [Singulair] 10 mg tablet 10 mg PO DAILY RF: 0 omeprazole 40 mg capsule,delayed release(DR/EC) 40 mg PO DAILY Qty: 30 RF: 6 uttjybtcmn-dcortkymctjdh-bnps 50-325-40 mg tablet 1 tab PO Q4-6H PRN (Reason: headache) Qty: 20 RF: 2 labetalol 100 mg tablet 200 mg PO TID RF: 0 Follow up/Referrals: Marisa Laguerre MD [Primary Care Provider] - Sandy Lawson MD [Physician] - 3-5 Days (BP check) Diet/Activity/Treatments Diet: Regular Activity: Nothing in the vagina for 6 weeks. Avoid lifting more than 10 lbs for 6 weeks. If you have increasing bleeding, fevers, chills, nausea, vomiting, headaches, visual changes, or any other symptoms or concerns, call or come to the Emergency Department. Skin/Wound/Dressing Care Report to your healthcare provider any signs of infection, such as:: chills, fever, night sweats, increased pain, unusual drainage and unusual redness Visit Report/Discharge Packet Instructions: DI for Labor and Delivery, Vaginal Discharge Data Primary Care Provider: Marisa Laguerre
[2020-06-12 09:18] VITALS: BP 139/92; PULSE 90
[2020-06-12] MEDS: LABETALOL 100 MG TABLET 200 MG PO (09:18)
[2020-06-12 19:42] VITALS: BP 139/92; PULSE 90; RESP 18; TEMP 36.2
== END 2020-06-12 19:30 | disposition home or self-care (01) | DRG 807 ==
PROVIDERS: Admitting Provider Specialist; PCP Family Medicine; Referring Provider Specialist; Visit Provider Specialist
DX: O24.419 Gestational diabetes mellitus in pregnancy, unspecified control (principal); Z37.0 Single live birth; O13.3 Gestational [pregnancy-induced] hypertension without significant proteinuria, third trimester; O99.213 Obesity complicating pregnancy, third trimester; Z20.822 Contact with and (suspected) exposure to COVID-19; Z3A.38 38 weeks gestation of pregnancy; O43.893 Other placental disorders, third trimester; O76 Abnormality in fetal heart rate and rhythm complicating labor and delivery
CPT/HCPCS: 01967; 36415; 59025; 59050; 59200; 59400; 76815; 80053; 84112; 85025; 86850; 86900; 86901; 87635; C9803; J2405; J2590

== ENCOUNTER → 2021-03-03 13:39 | Outpatient (CLI) | payer OTHER, MEDICAID, SELFPAY ==
[2021-03-03 14:53] LABS: Add Manual Diff / Slide Review NO; Basophils Absolute Auto 0 /uL (0-100); Basophils Percent Auto 0.3 % (0-2); Eosinophils Absolute Auto 0 /uL (0-450); Eosinophils Percent Auto 0.1 % (2-4); Hematocrit 39.7 % (36-46); Hemoglobin 13.5 g/dL (12.0-16.0); Lymphocytes Absolute Auto 1600 /uL (1100-4500); Lymphocytes Percent Auto 20.6 % (25-40); Mean Corpuscular Hemoglobin 30.9 PG (26-34); Mean Corpuscular Volume 90.9 fL (80-100); Monocytes Absolute Auto 400 /uL (0-900); Monocytes Percent Auto 5.2 % (3-14); Neutrophils Absolute Auto 5600 /uL (1500-7000); Neutrophils Percent Auto 73.8 % (50-75); Platelet Count 324 X10^3/uL (150-400); Red Blood Cell Count 4.37 X10^6/uL (4.0-5.2); Red Cell Distribution Width 12.5 % (11.6-14.8); White Blood Cell Count 7.6 X10^3/uL (4.5-11.0)
[2021-03-03 17:10] LABS: Hepatitis B Surface Antigen NEGATIVE s/c (NEGATIVE); Rubella Antibody IgG 12.9 IU/mL (>15)
[2021-03-03 17:25] LABS: HIV 1 & 2 Ab/Ag 4th Gen Combo NEGATIVE (NEGATIVE); Hep C Virus Ab w/Reflex Quant NEGATIVE s/c (NEGATIVE)
[2021-03-04 05:14] LABS: RPR Screen Non Reactive (Non Reactive)
[2021-03-04 08:09] LABS: Varicella IgG Antibody 1253 index (Immune >165)
== END ==
PROVIDERS: PCP Family Medicine; Referring Provider Obstetrics & Gynecology; Visit Provider Obstetrics & Gynecology
DX: Z34.81 Encounter for supervision of other normal pregnancy, first trimester (principal); Z3A.09 9 weeks gestation of pregnancy
CPT/HCPCS: 36415; 80055; 83036; 86787; 86803; 86850; 86900; 86901; 87389

== ENCOUNTER → 2021-04-04 08:27 | Outpatient (CLI) | payer OTHER, MEDICAID, SELFPAY ==
[2021-04-04 09:54] LABS: Appearance Urine UA CLEAR; Bilirubin Urine UA NEGATIVE (NEGATIVE); Color Urine UA YELLOW; Glucose Urine UA NEGATIVE (Negative); Ketones Urine UA NEGATIVE (NEGATIVE); Leukocyte Esterase Urine UA NEGATIVE (NEGATIVE); Nitrite Urine UA NEGATIVE (Negative); Occult Blood Urine UA NEGATIVE (Negative); Protein Urine UA NEGATIVE (Negative); Specific Gravity Urine UA <=1.005 (1.000-1.035); Urobilinogen Urine UA 0.2 E.U./dL (0.2)
[2021-04-04 11:07] LABS: GTT (PREG) 1 Hour PP 50gm Dose 133 mg/dL (76-139)
== END ==
PROVIDERS: PCP Family Medicine; Referring Provider Obstetrics & Gynecology; Visit Provider Obstetrics & Gynecology
DX: Z34.81 Encounter for supervision of other normal pregnancy, first trimester (principal)
CPT/HCPCS: 36415; 81003; 82950; 87086

== ENCOUNTER → 2021-04-10 08:56 | Outpatient (CLI) | payer OTHER, MEDICAID, SELFPAY ==
[2021-04-11 16:09] LABS: Specimen Label KIT TEST
== END ==
PROVIDERS: PCP Family Medicine; Referring Provider Obstetrics & Gynecology; Visit Provider Obstetrics & Gynecology
DX: Z34.82 Encounter for supervision of other normal pregnancy, second trimester (principal); Z86.32 Personal history of gestational diabetes; Z87.59 Personal history of other complications of pregnancy, childbirth and the puerperium
CPT/HCPCS: 36415

== ENCOUNTER → 2021-05-22 14:22 | Outpatient (CLI) | payer OTHER, MEDICAID, SELFPAY ==
--- NOTE | 2021-05-22 14:23 | DI.US.S_ITS ---
PROCEDURE: US OB >= 14 WEEKS FETUS INDICATIONS: 20 WEEK ANATOMY SCAN OUTSIDE/PRIOR DATING DATA: Last menstrual period (LMP): 12/30/2020. LMP-based estimated date of delivery (BRITTNEY): 10/06/2021. First dating scan (date and location): 03/03/2021. Estimated date of delivery (BRITTNEY) from first dating scan: 10/05/2021. TECHNIQUE: Real-time scanning was performed of the fetus, with image documentation and biometric measurements. COMPARISON: [facility], US, US OB >= 14 WEEKS FETUS, 05/02/2021, 8:27. FINDINGS: General: A single living intrauterine gestation is present. Presentation: Transverse/breech. Placenta: Placental position is posterior , without previa. Amniotic fluid index: 10.8 cm, normal range is 5-24 cm. heart rate: 150 beats per minute. Maternal cervical canal: 4 cm long. Normal lower limit is 2.5 cm. biometrics: Biparietal diameter: 4.7 cm 20 weeks 1 day Head circumference: 17.2 cm 19 weeks 5 days Abdominal circumference: 15.2 cm 20 weeks 3 days Femur length: 3.5 cm 21 weeks 0 days Composite gestational age from present scan: 20 weeks 2 days Composite gestational age from initial scan: 20 weeks 4 days Estimated weight and percentile: 364 g 46th percentile Anatomic survey: Neuro: Ventricles are non-dilated at less than 10 mm. Remaining portions are considered suboptimal for visualization. Nuchal skin fold: Not well seen Face: Nose and lips, facial profile are not well seen. Spine: Not well seen. Heart: 4-chambered heart and ventricular outflow tracts are not well seen Diaphragm: Diaphragm is intact. Stomach: Left-sided stomach is present. Kidneys: Not well seen. Cord: 3-vessel cord has orthotopic insertion. Bladder: Normal in size. Extremities: All 4 extremities identified. Feet are not visualized bilaterally. IMPRESSION: Single live intrauterine with ultrasound gestational age today of 20 weeks 2 days. Multiple anatomic structures are not well seen secondary to patient body habitus as well as positioning. Recommend short interval imaging follow-up for further evaluation. We strive to produce accurate, complete, and clear reports of imaging services. To assist us in improving patient care, this report was composed using standard report templates and voice recognition software. Therefore, it may contain abnormal punctuation, insertions and/or omissions. Occasional wrong-word or sound-alike substitutions may occur. Though we review the report and make efforts to correct it, we do recommend that the report be read carefully in proper context to recognize any text inaccuracies. Dictated by: Farzana May M.D. on 05/22/2021 at 16:58 Approved by: Farzana May M.D. on 05/22/2021 at 17:02
== END ==
PROVIDERS: PCP Family Medicine; Referring Provider Obstetrics & Gynecology; Visit Provider Obstetrics & Gynecology
DX: Z34.82 Encounter for supervision of other normal pregnancy, second trimester (principal); Z3A.20 20 weeks gestation of pregnancy
CPT/HCPCS: 76811

== ENCOUNTER → 2021-06-13 09:38 | Outpatient (CLI) | payer OTHER, MEDICAID, SELFPAY ==
--- NOTE | 2021-06-13 09:39 | DI.US.S_ITS ---
PROCEDURE: US OB FOLLOW UP INDICATIONS: F/U Anatomy scan OUTSIDE/PRIOR DATING DATA: Last menstrual period (LMP): 12/30/2020 LMP-based estimated date of delivery (BRITTNEY): 10/06/2021 First dating scan (date and location): 03/03/2021 Estimated date of delivery (BRITTNEY) from first dating scan: 10/05/2021 The calculations are made using the ultrasound BRITTNEY of 10/05/2021 TECHNIQUE: Real-time scanning was performed of the fetus, with image documentation. Endovaginal scanning: Not performed. COMPARISON: [facility], , US OB >= 14 WEEKS FETUS, 05/22/2021, 14:53. FINDINGS: General: A single living intrauterine gestation is present. Presentation: Cephalic Placenta: Placental position is posterior, without previa. Amniotic fluid index: 7.7 cm, normal range is 5-24 cm. Single deepest vertical pocket is 2.5 cm. heart rate: 139 beats per minute. Maternal cervical canal: 5.5 cm long. Normal lower limit is 2.5 cm. Clinically estimated gestational age: 23 weeks 5 days Other: profile, spine, and feet are better visualized on the current exam. The nuchal region is suboptimally visualized, but does not appear significantly thickened. The heart and ventricular outflow tracts and the kidneys are again suboptimally visualized. IMPRESSION: 1. Single live intrauterine . 2. facial profile, spine, feet, and four-chamber heart are better visualized on the current exam. The ventricular outflow tracts and kidneys are not well seen. 3. Amniotic fluid index near the lower limits of normal. We strive to produce accurate, complete, and clear reports of imaging services. To assist us in improving patient care, this report was composed using standard report templates and voice recognition software. Therefore, it may contain abnormal punctuation, insertions and/or omissions. Occasional wrong-word or sound-alike substitutions may occur. Though we review the report and make efforts to correct it, we do recommend that the report be read carefully in proper context to recognize any text inaccuracies. Dictated by: Vincent Farr M.D. on 06/13/2021 at 13:48 Approved by: Vincent Farr M.D. on 06/13/2021 at 13:56
== END ==
PROVIDERS: PCP Family Medicine; Referring Provider Obstetrics & Gynecology; Visit Provider Obstetrics & Gynecology
DX: Z36.2 Encounter for other antenatal screening follow-up (principal); O23.592 Infection of other part of genital tract in pregnancy, second trimester; N76.0 Acute vaginitis; B96.89 Other specified bacterial agents as the cause of diseases classified elsewhere; Z3A.23 23 weeks gestation of pregnancy
CPT/HCPCS: 76816; 87480; 87510; 87660

== ENCOUNTER → 2021-06-13 11:35 | Outpatient (CLI) | payer OTHER, MEDICAID, SELFPAY ==
[2021-06-14 05:46] LABS: Candida species Negative (Negative); Gardnerella vaginalis Negative (Negative); Trichomoas vaginalis Negative (Negative)
== END ==
PROVIDERS: PCP Family Medicine; Visit Provider Obstetrics & Gynecology
DX: B96.89 Other specified bacterial agents as the cause of diseases classified elsewhere (principal); N76.0 Acute vaginitis
CPT/HCPCS: 87480; 87510; 87660

== ENCOUNTER → 2021-07-19 08:50 | Outpatient (CLI) | payer OTHER, MEDICAID, SELFPAY ==
[2021-07-19 10:24] LABS: Hemoglobin 12.7 g/dL (12.0-16.0)
[2021-07-19 10:42] LABS: GTT (PREG) 1 Hour PP 50gm Dose 142 mg/dL (76-139)
== END ==
PROVIDERS: PCP Family Medicine; Referring Provider Obstetrics & Gynecology; Visit Provider Obstetrics & Gynecology
DX: Z34.82 Encounter for supervision of other normal pregnancy, second trimester (principal); Z3A.25 25 weeks gestation of pregnancy
CPT/HCPCS: 36415; 82950; 85014; 85018

== ENCOUNTER → 2021-07-21 09:35 | Outpatient (CLI) | payer OTHER, MEDICAID, SELFPAY ==
[2021-07-21 11:15] LABS: Add Manual Diff / Slide Review NO; Basophils Absolute Auto 0 /uL (0-100); Basophils Percent Auto 0.1 % (0-2); Eosinophils Absolute Auto 0 /uL (0-450); Eosinophils Percent Auto 0.4 % (2-4); Hematocrit 36.4 % (36-46); Hemoglobin 12.6 g/dL (12.0-16.0); Lymphocytes Absolute Auto 1700 /uL (1100-4500); Lymphocytes Percent Auto 16.2 % (25-40); Mean Corpuscular HGB Conc 34.7 % (30-36); Mean Corpuscular Hemoglobin 31.9 PG (26-34); Mean Corpuscular Volume 91.8 fL (80-100); Monocytes Absolute Auto 500 /uL (0-900); Monocytes Percent Auto 5.2 % (3-14); Neutrophils Absolute Auto 8200 /uL (1500-7000); Neutrophils Percent Auto 78.1 % (50-75); Platelet Count 251 X10^3/uL (150-400); Red Blood Cell Count 3.96 X10^6/uL (4.0-5.2); Red Cell Distribution Width 13.2 % (11.6-14.8); White Blood Cell Count 10.5 X10^3/uL (4.5-11.0)
[2021-07-21 11:30] LABS: Alanine Aminotransferase 16 IU/L (<35); Albumin Globulin Ratio 1.2 (1.0-2.8); Alkaline Phosphatase 68 U/L (38-126); Aspartate Aminotransferase 23 IU/L (14-36); BUN Creatinine Ratio 13.7 (6-22); Bilirubin Total 0.2 mg/dL (0.2-1.3); Blood Urea Nitrogen 7 mg/dL (7-17); Calcium 9.1 mg/dL (8.4-10.2); Carbon Dioxide 25 mmol/L (22-32); Chloride 106 mmol/L (98-107); Estimated Glomerular Filt Rate > 60 mL/min (>60); Globulin 3.3 g/dL (1.7-4.1); Glucose 81 mg/dL (70-100); HEMOLYSIS < 15 (0-50); Lactate Dehydrogenase 390 U/L (313-618); Potassium 4.1 mmol/L (3.4-5.1); Sodium 136 mmol/L (137-145); Total Protein 7.3 g/dL (6.3-8.2); Uric Acid 3.5 mg/dL (2.5-6.2)
[2021-07-21 15:52] LABS: Creatinine Urine Random 73.8 mg/dL; Protein (Total) Urine Random 8 mg/dL (0-12)
== END ==
PROVIDERS: PCP Family Medicine; Referring Provider Obstetrics & Gynecology; Visit Provider Obstetrics & Gynecology
DX: Z34.90 Encounter for supervision of normal pregnancy, unspecified, unspecified trimester (principal)
CPT/HCPCS: 36415; 80053; 82570; 83615; 84156; 84550; 85025

== ENCOUNTER → 2021-08-02 07:56 | Outpatient (CLI) | payer OTHER, MEDICAID, SELFPAY ==
[2021-08-02 09:42] LABS: Glucose Fasting Gestational 94 mg/dL (76-95)
[2021-08-02 10:06] LABS: Glucose 1 Hour Gest 194 mg/dL (76-180)
[2021-08-02 11:16] LABS: Glucose Tol Interp,Gestational INTERPRETATION
[2021-08-02 12:03] LABS: Glucose 3 Hour Gest 73 mg/dL (76-140)
[2021-08-02 12:12] LABS: Glucose 2 Hour Gest 140 mg/dL (76-155)
== END ==
PROVIDERS: PCP Family Medicine; Referring Provider Obstetrics & Gynecology; Visit Provider Obstetrics & Gynecology
DX: O99.810 Abnormal glucose complicating pregnancy (principal)
CPT/HCPCS: 36415; 82951; 82952

== ENCOUNTER 2021-08-03 12:43 | Observation (INO) | payer OTHER, MEDICAID, SELFPAY ==
[2021-08-03 13:30] LABS: Add Manual Diff / Slide Review NO; Basophils Absolute Auto 100 /uL (0-100); Basophils Percent Auto 0.6 % (0-2); Eosinophils Absolute Auto 0 /uL (0-450); Eosinophils Percent Auto 0.3 % (2-4); Hematocrit 33.6 % (36-46); Hemoglobin 11.9 g/dL (12.0-16.0); Lymphocytes Absolute Auto 1700 /uL (1100-4500); Lymphocytes Percent Auto 14.4 % (25-40); Mean Corpuscular HGB Conc 35.3 % (30-36); Mean Corpuscular Hemoglobin 32.1 PG (26-34); Mean Corpuscular Volume 90.8 fL (80-100); Monocytes Absolute Auto 700 /uL (0-900); Monocytes Percent Auto 5.7 % (3-14); Neutrophils Absolute Auto 9400 /uL (1500-7000); Platelet Count 252 X10^3/uL (150-400); Red Cell Distribution Width 13.3 % (11.6-14.8); White Blood Cell Count 11.9 X10^3/uL (4.5-11.0)
[2021-08-03 13:47] LABS: Creatinine Urine Random 65.4 mg/dL; Protein (Total) Urine Random 12 mg/dL (0-12); Protein Creatinine Ratio Urine 0.18 GRAM/24H
[2021-08-03 13:47] LABS: Aspartate Aminotransferase 21 IU/L (14-36); BUN Creatinine Ratio 15.4 (6-22); Blood Urea Nitrogen 6 mg/dL (7-17); Estimated Glomerular Filt Rate > 60 mL/min (>60); Uric Acid 2.8 mg/dL (2.5-6.2)
--- NOTE | 2021-08-03 14:37 | P.TNLD_ITS ---
Visit Information Visit Information Date of evaluation: 08/03/21 Primary OB Provider: Janeth Thomas Reason for Evaluation: Yes other Comments/Additional reasons for admission: This patient is a 30yo @ 30+6 with a history of gHTN, presenting with elevated BPs at home and malaise x2 days. Reports good movement, no LOF or VB, no ctx. No RUQ pain, no sudden increase in swelling, no visual changes. Vital Signs Vital Signs: 132-144/77-91, HR 100s, afebrile [facility] Medical History Anxiety Chicken pox (~1992) Depression Elevated blood pressure reading in office with white coat syndrome, with diagnosis of hypertension Fracture of left wrist Frequent epistaxis (~09/2019) Hair loss (~09/2019) Headache Heavy menstrual period Hx of being hospitalized Migraines Ovarian cyst (~2008) Rosacea (~2015) Vacuum-assisted vaginal delivery (~06/11/20) Wears glasses Yeast infection (~2018) Surgical History Anesthesia H/O wisdom tooth extraction (~2010) History of tonsillectomy (~1997) Family History Mother Hyperlipidemia Hypertension Lupus (systemic lupus erythematosus) Neuropathy Depression Grandmother Cancer Lung cancer Smoker Breast cancer Grandfather Unknown whether patient has any health problems Family estrangement Father Unknown whether patient has any health problems Family estrangement Grandfather Family estrangement Unknown whether patient has any health problems Grandmother Breast cancer Family estrangement Family/Other Congenital heart anomaly IV drug user Status post cardiac surgery Sister Bipolar 1 disorder Social History marital status: number of children: 1 household members: spouse and children lives independently: Yes caregiver/support person: No housing: house pets and animals: No education level: college occupational status: unemployed current occupational exposures/hazards: No 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 ) Type(s) of exercise: walking frequency: 5-6 times per week duration: 45-60 minutes/day Review of Systems Constitutional Constitutional: Reports as per HPI Cardiovascular Cardiovascular: Reports system reviewed and no additional complaints, except as documented Respiratory Respiratory: Reports system reviewed and no additional complaints, except as documented Gastrointestinal Gastrointestinal: Reports system reviewed and no additional complaints, except as documented Exam Const General: cooperative, healthy appearing and comfortable Resp Effort & Inspection: normal respiratory effort Auscultation: clear to auscultation bilaterally Cardio Rate: regular rate Rhythm: regular rhythm GI Palpation: soft and No tender Neuro DTR's: Rt Patellar: 2+ and Lt Patellar: 2+ Extrem Other: 1+ LE edema Objective Labs Result Diagrams: 08/03/21 13:24 08/03/21 13:24 Labs: Laboratory Results - last 24 hr 08/03/21 08/03/21 08/03/21 13:00 13:24 13:24 WBC 11.9 H RBC 3.70 L Hgb 11.9 L Hct 33.6 L MCV 90.8 MCH 32.1 MCHC 35.3 RDW 13.3 Plt Count 252 Neut % (Auto) 79.0 H Lymph % (Auto) 14.4 L [place] % (Auto) 5.7 Eos % (Auto) 0.3 L Baso % (Auto) 0.6 Neut # (Auto) 9400 H Lymph # (Auto) 1700 [place] # (Auto) 700 Eos # (Auto) 0 Baso # (Auto) 100 BUN 6 L Creatinine 0.39 L Estimated GFR > 60 BUN/Creatinine Ratio 15.4 Uric Acid 2.8 AST 21 U Random Total Protein 12 Urine Creatinine 65.4 Protein/Creatinin Ratio 0.18 Evaluation Evaluation Baseline heart rate: 135 Variability: Moderate (11-25) monitor accelerations: Present Monitor Decelerations: Absent Category of Tracing: Reactive Status: Category l Diagnosis, Plan/Disposition Plan/Disposition Plan: This patient meets diagnostic criteria for a diagnosis of gHTN. We discussed her normal PIH labs, precautions for return, and starting PO labetalol 100mg daily. She will return to clinic tomorrow for a BP check. OB Disposition: home
== END 2021-08-03 15:00 | disposition home or self-care (01) ==
PROVIDERS: Admitting Provider Obstetrics & Gynecology; PCP Family Medicine; Referring Provider Obstetrics & Gynecology; Visit Provider Obstetrics & Gynecology
DX: O13.3 Gestational [pregnancy-induced] hypertension without significant proteinuria, third trimester (principal); Z3A.30 30 weeks gestation of pregnancy
CPT/HCPCS: 36415; 59025; 82570; 84156; 84450; 84550; 85025; G0378; G0379

== ENCOUNTER → 2021-08-07 11:38 | Outpatient (CLI) | payer OTHER, MEDICAID, SELFPAY ==
[2021-08-07 12:04] LABS: Creatinine Urine Random 74.2 mg/dL
[2021-08-07 12:11] LABS: Microalbumin Urine Random 0.6 mg/dL (0-1.6)
== END ==
PROVIDERS: PCP Family Medicine; Visit Provider Obstetrics & Gynecology
DX: O16.3 Unspecified maternal hypertension, third trimester (principal)
CPT/HCPCS: 82043; 82570

== ENCOUNTER 2021-08-07 11:39 | Outpatient (CLI) | payer OTHER, MEDICAID, SELFPAY ==
[2021-08-07 12:40] LABS: Add Manual Diff / Slide Review NO; Basophils Absolute Auto 0 /uL (0-100); Basophils Percent Auto 0.2 % (0-2); Eosinophils Absolute Auto 0 /uL (0-450); Eosinophils Percent Auto 0.4 % (2-4); Hematocrit 34.3 % (36-46); Hemoglobin 11.8 g/dL (12.0-16.0); Lymphocytes Absolute Auto 2000 /uL (1100-4500); Lymphocytes Percent Auto 16.7 % (25-40); Mean Corpuscular HGB Conc 34.2 % (30-36); Mean Corpuscular Hemoglobin 31.4 PG (26-34); Mean Corpuscular Volume 91.6 fL (80-100); Monocytes Absolute Auto 600 /uL (0-900); Neutrophils Absolute Auto 9100 /uL (1500-7000); Neutrophils Percent Auto 77.7 % (50-75); Platelet Count 251 X10^3/uL (150-400); Red Blood Cell Count 3.75 X10^6/uL (4.0-5.2); White Blood Cell Count 11.8 X10^3/uL (4.5-11.0)
[2021-08-07] MEDS: BUTALB/APAP/CAFFEINE 50/325/40 TABLET 1 EACH PO (12:46)
[2021-08-07 12:53] LABS: Creatinine Urine Random 74.6 mg/dL; Protein (Total) Urine Random 5 mg/dL (0-12); Protein Creatinine Ratio Urine 0.06 GRAM/24H
[2021-08-07 13:01] LABS: Alanine Aminotransferase 13 IU/L (<35); Albumin 3.8 g/dL (3.5-5.0); Albumin Globulin Ratio 1.2 (1.0-2.8); Alkaline Phosphatase 76 U/L (38-126); Aspartate Aminotransferase 20 IU/L (14-36); BUN Creatinine Ratio 15.7 (6-22); Bilirubin Total 0.2 mg/dL (0.2-1.3); Blood Urea Nitrogen 8 mg/dL (7-17); Calcium 8.8 mg/dL (8.4-10.2); Carbon Dioxide 22 mmol/L (22-32); Chloride 107 mmol/L (98-107); Estimated Glomerular Filt Rate > 60 mL/min (>60); Globulin 3.1 g/dL (1.7-4.1); Glucose 91 mg/dL (70-100); HEMOLYSIS < 15 (0-50); Lactate Dehydrogenase 401 U/L (313-618); Potassium 3.8 mmol/L (3.4-5.1); Sodium 137 mmol/L (137-145); Total Protein 6.9 g/dL (6.3-8.2); Uric Acid 3.4 mg/dL (2.5-6.2)
== END 2021-08-07 13:32 | disposition home or self-care (01) ==
LOC: LABOR 12:37 → OB 08-08 08:04
PROVIDERS: PCP Family Medicine; Referring Provider Obstetrics & Gynecology; Visit Provider Obstetrics & Gynecology
DX: O13.3 Gestational [pregnancy-induced] hypertension without significant proteinuria, third trimester (principal); Z3A.31 31 weeks gestation of pregnancy
CPT/HCPCS: 36415; 59025; 80053; 82043; 82570; 83615; 84156; 84550; 85025; G0378; G0379

== ENCOUNTER → 2021-08-09 11:26 | Outpatient (CLI) | payer OTHER, MEDICAID, SELFPAY ==
--- NOTE | 2021-08-09 11:29 | DI.US.S_ITS ---
PROCEDURE: US OB LIMITED INDICATIONS: growth abdomen OUTSIDE/PRIOR DATING DATA: Last menstrual period (LMP): 12/30/2020 LMP-based estimated date of delivery (BRITTNEY): 10/06/2021 First dating scan (date and location): 03/03/2021 Estimated date of delivery (BRITTNEY) from first dating scan: 10/05/2021. TECHNIQUE: Real-time scanning was performed of the fetus, with image documentation and biometric measurements. Endovaginal scanning: Not indicated COMPARISON: [facility], US, US OB LIMITED, 06/21/2021, 8:50. [facility], US, US OB >= 14 WEEKS FETUS, 07/31/2021, 9:44. [facility], , US OB >= 14 WEEKS FETUS, 08/07/2021, 11:34. FINDINGS: General: A single living intrauterine gestation is present. Presentation: Breech Placenta: Placental position is fundal, without previa. Amniotic fluid index: 6.3 cm, normal range is 5-24 cm. Single deepest vertical pocket is 2.8 cm. heart rate: 147 beats per minute. Maternal cervical canal: 5 cm long. Normal lower limit is 2.5 cm. biometrics: Biparietal diameter: 7.3 cm, 29 weeks, 2 days. Head circumference: 28.4 cm, 31 weeks, 1 day. Abdominal circumference: 26.6 cm, 30 weeks, 5 days. Femur length: 6.2 cm, 32 weeks, 0 day. Clinically estimated gestational age: 31 weeks, 6 days Composite gestational age from present scan: 30 weeks, 6 days Estimated weight and percentile: 1683 g, 16% facial profile, four-chamber heart and outflow tracts are not well seen on this study. Bilateral kidneys are visualized and are within normal limits. IMPRESSION: 1. Single live intrauterine gestation with fetus in breech presentation. heart rate is 147 beats per minute. ATIYA equals 6.3 cm with largest pocket measures 2.8 cm. Estimated weight is at 16%. 2. facial profile, four-chamber heart and outflow tracts are not well visualized on this study. Bilateral kidneys are seen Mets. We strive to produce accurate, complete, and clear reports of imaging services. To assist us in improving patient care, this report was composed using standard report templates and voice recognition software. Therefore, it may contain abnormal punctuation, insertions and/or omissions. Occasional wrong-word or sound-alike substitutions may occur. Though we review the report and make efforts to correct it, we do recommend that the report be read carefully in proper context to recognize any text inaccuracies. Dictated by: Stanislaw Condon M.D. on 08/09/2021 at 12:32 Approved by: Stanislaw Condon M.D. on 08/09/2021 at 12:36
== END ==
PROVIDERS: PCP Family Medicine; Referring Provider Obstetrics & Gynecology; Visit Provider Obstetrics & Gynecology
DX: Z34.93 Encounter for supervision of normal pregnancy, unspecified, third trimester (principal); Z3A.30 30 weeks gestation of pregnancy
CPT/HCPCS: 76815

== ENCOUNTER 2021-08-09 12:13 | Outpatient (CLI) | payer OTHER, MEDICAID, SELFPAY ==
--- NOTE | 2021-08-09 13:00 | PM.OBTRLD ---
Visit Information Visit Information Date of evaluation: 08/09/21 Primary OB Provider: Janeth Thomas On-call OB Provider: Yolis Villarreal Reason for Evaluation: Yes non-stress test non-stress test reason: hypertension/pre-eclampsia PFSH Medical History Anxiety Chicken pox (~1992) Depression Elevated blood pressure reading in office with white coat syndrome, with diagnosis of hypertension Fracture of left wrist Frequent epistaxis (~09/2019) Hair loss (~09/2019) Headache Heavy menstrual period Hx of being hospitalized Migraines Ovarian cyst (~2008) Rosacea (~2015) Vacuum-assisted vaginal delivery (~06/11/20) Wears glasses Yeast infection (~2018) Surgical History Anesthesia H/O wisdom tooth extraction (~2010) History of tonsillectomy (~1997) Family History Mother Hyperlipidemia Hypertension Lupus (systemic lupus erythematosus) Neuropathy Depression Grandmother Cancer Lung cancer Smoker Breast cancer Grandfather Unknown whether patient has any health problems Family estrangement Father Unknown whether patient has any health problems Family estrangement Grandfather Family estrangement Unknown whether patient has any health problems Grandmother Breast cancer Family estrangement Family/Other Congenital heart anomaly IV drug user Status post cardiac surgery Sister Bipolar 1 disorder Social History marital status: number of children: 1 household members: spouse and children lives independently: Yes caregiver/support person: No housing: house pets and animals: No education level: college occupational status: unemployed current occupational exposures/hazards: No 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 ) Type(s) of exercise: walking frequency: 5-6 times per week duration: 45-60 minutes/day Evaluation Evaluation Baseline heart rate: 120 Variability: Moderate (11-25) monitor accelerations: Present Monitor Decelerations: Absent Category of Tracing: Reactive Diagnosis, Plan/Disposition Final Diagnosis (1) Hypertension affecting in third trimester: Status: Acute (2) Gestational diabetes: Status: Acute Plan/Disposition Plan: 30yo at 31w5d here for NST for gestational HTN. NST reactive. BP good range. Labs completes 08/07. Stable for d/c home. OB Disposition: home
== END 2021-08-09 13:08 | disposition home or self-care (01) ==
LOC: OB 08-10 07:44
PROVIDERS: PCP Family Medicine; Referring Provider Obstetrics & Gynecology; Visit Provider Obstetrics & Gynecology
DX: O13.3 Gestational [pregnancy-induced] hypertension without significant proteinuria, third trimester (principal); O24.419 Gestational diabetes mellitus in pregnancy, unspecified control; Z3A.31 31 weeks gestation of pregnancy; Z34.93 Encounter for supervision of normal pregnancy, unspecified, third trimester; Z3A.30 30 weeks gestation of pregnancy
CPT/HCPCS: 59025; 76815; G0378; G0379

== ENCOUNTER 2021-08-14 08:35 | Outpatient (CLI) | payer OTHER, MEDICAID, SELFPAY ==
--- NOTE | 2021-08-14 16:39 | PM.OBTRLD ---
Visit Information Visit Information Date of evaluation: 08/14/21 Primary OB Provider: Janeth Thomas Reason for Evaluation: Yes non-stress test Comments/Additional reasons for admission: This patient is a 30yo P1 with gTHN, now at 32 weeks gestation. Presenting for scheduled NST. Vital Signs Vital Signs: 131/86, HR 100 PFSH Medical History Anxiety Chicken pox (~1992) Depression Elevated blood pressure reading in office with white coat syndrome, with diagnosis of hypertension Fracture of left wrist Frequent epistaxis (~09/2019) Hair loss (~09/2019) Headache Heavy menstrual period Hx of being hospitalized Migraines Ovarian cyst (~2008) Rosacea (~2015) Vacuum-assisted vaginal delivery (~06/11/20) Wears glasses Yeast infection (~2018) Surgical History Anesthesia H/O wisdom tooth extraction (~2010) History of tonsillectomy (~1997) Family History Mother Hyperlipidemia Hypertension Lupus (systemic lupus erythematosus) Neuropathy Depression Grandmother Cancer Lung cancer Smoker Breast cancer Grandfather Unknown whether patient has any health problems Family estrangement Father Unknown whether patient has any health problems Family estrangement Grandfather Family estrangement Unknown whether patient has any health problems Grandmother Breast cancer Family estrangement Family/Other Congenital heart anomaly IV drug user Status post cardiac surgery Sister Bipolar 1 disorder Social History marital status: number of children: 1 household members: spouse and children lives independently: Yes caregiver/support person: No housing: house pets and animals: No education level: college occupational status: unemployed current occupational exposures/hazards: No 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 ) Type(s) of exercise: walking frequency: 5-6 times per week duration: 45-60 minutes/day Evaluation Evaluation Baseline heart rate: 135 Variability: Moderate (11-25) monitor accelerations: Present Monitor Decelerations: Absent Category of Tracing: Reactive Status: Category l Diagnosis, Plan/Disposition Plan/Disposition Plan: To clinic for scheduled visit. OB Disposition: home
== END 2021-08-14 09:26 | disposition home or self-care (01) ==
LOC: LABOR 09:25 → OB 08-15 06:50
PROVIDERS: PCP Family Medicine; Referring Provider Obstetrics & Gynecology; Visit Provider Obstetrics & Gynecology
DX: O13.3 Gestational [pregnancy-induced] hypertension without significant proteinuria, third trimester (principal); Z3A.32 32 weeks gestation of pregnancy
CPT/HCPCS: 59025; 82570; 84156; G0378; G0379

== ENCOUNTER → 2021-08-14 11:04 | Outpatient (CLI) | payer OTHER, MEDICAID, SELFPAY ==
[2021-08-14 15:21] LABS: Protein (Total) Urine Random 8 mg/dL (0-12); Protein Creatinine Ratio Urine 0.09 GRAM/24H
== END ==
PROVIDERS: PCP Family Medicine; Visit Provider Obstetrics & Gynecology
DX: O16.3 Unspecified maternal hypertension, third trimester (principal)
CPT/HCPCS: 82570; 84156

== ENCOUNTER 2021-08-16 12:41 | Observation (INO) | payer OTHER, MEDICAID, SELFPAY ==
[2021-08-16 13:37] LABS: Add Manual Diff / Slide Review NO; Basophils Absolute Auto 100 /uL (0-100); Basophils Percent Auto 0.6 % (0-2); Eosinophils Absolute Auto 0 /uL (0-450); Eosinophils Percent Auto 0.4 % (2-4); Hemoglobin 11.5 g/dL (12.0-16.0); Lymphocytes Absolute Auto 1900 /uL (1100-4500); Lymphocytes Percent Auto 18.4 % (25-40); Mean Corpuscular HGB Conc 34.8 % (30-36); Mean Corpuscular Hemoglobin 31.5 PG (26-34); Mean Corpuscular Volume 90.4 fL (80-100); Monocytes Absolute Auto 500 /uL (0-900); Monocytes Percent Auto 5.2 % (3-14); Neutrophils Absolute Auto 7800 /uL (1500-7000); Neutrophils Percent Auto 75.4 % (50-75); Platelet Count 240 X10^3/uL (150-400); Red Blood Cell Count 3.65 X10^6/uL (4.0-5.2); Red Cell Distribution Width 13.2 % (11.6-14.8); White Blood Cell Count 10.3 X10^3/uL (4.5-11.0)
[2021-08-16 13:45] LABS: Alanine Aminotransferase 14 IU/L (<35); Albumin 3.3 g/dL (3.5-5.0); Albumin Globulin Ratio 1.1 (1.0-2.8); Alkaline Phosphatase 74 U/L (38-126); Aspartate Aminotransferase 19 IU/L (14-36); Bilirubin Total 0.2 mg/dL (0.2-1.3); Blood Urea Nitrogen 3 mg/dL (7-17); Calcium 8.1 mg/dL (8.4-10.2); Carbon Dioxide 22 mmol/L (22-32); Chloride 108 mmol/L (98-107); Estimated Glomerular Filt Rate > 60 mL/min (>60); Glucose 88 mg/dL (70-100); HEMOLYSIS < 15 (0-50); Potassium 3.4 mmol/L (3.4-5.1); Sodium 134 mmol/L (137-145); Total Protein 6.3 g/dL (6.3-8.2)
[2021-08-16 15:34] LABS: Protein (Total) Urine Random 6 mg/dL (0-12); Protein Creatinine Ratio Urine 0.06 GRAM/24H
== END 2021-08-16 14:20 | disposition home or self-care (01) ==
PROVIDERS: Obstetrics & Gynecology; Admitting Provider Obstetrics & Gynecology; PCP Family Medicine; Referring Provider Obstetrics & Gynecology; Visit Provider Obstetrics & Gynecology
DX: O13.3 Gestational [pregnancy-induced] hypertension without significant proteinuria, third trimester (principal); O26.893 Other specified pregnancy related conditions, third trimester; R51.9 Headache, unspecified; R10.10 Upper abdominal pain, unspecified; Z3A.32 32 weeks gestation of pregnancy
CPT/HCPCS: 80053; 82570; 84156; 85025; G0378; G0379

== ENCOUNTER → 2021-08-22 08:43 | Outpatient (CLI) | payer OTHER, MEDICAID, SELFPAY ==
[2021-08-22 10:00] LABS: Add Manual Diff / Slide Review NO; Basophils Absolute Auto 100 /uL (0-100); Eosinophils Absolute Auto 100 /uL (0-450); Eosinophils Percent Auto 0.6 % (2-4); Hematocrit 34.5 % (36-46); Hemoglobin 11.7 g/dL (12.0-16.0); Lymphocytes Absolute Auto 2000 /uL (1100-4500); Lymphocytes Percent Auto 19.5 % (25-40); Mean Corpuscular Hemoglobin 31.4 PG (26-34); Mean Corpuscular Volume 92.3 fL (80-100); Monocytes Absolute Auto 500 /uL (0-900); Monocytes Percent Auto 5.3 % (3-14); Neutrophils Absolute Auto 7600 /uL (1500-7000); Neutrophils Percent Auto 73.6 % (50-75); Platelet Count 258 X10^3/uL (150-400); Red Blood Cell Count 3.74 X10^6/uL (4.0-5.2); Red Cell Distribution Width 13.2 % (11.6-14.8); White Blood Cell Count 10.3 X10^3/uL (4.5-11.0)
[2021-08-22 10:18] LABS: Alanine Aminotransferase 17 IU/L (<35); Albumin 3.6 g/dL (3.5-5.0); Albumin Globulin Ratio 1.2 (1.0-2.8); Alkaline Phosphatase 80 U/L (38-126); Aspartate Aminotransferase 23 IU/L (14-36); BUN Creatinine Ratio 12.2 (6-22); Bilirubin Total 0.3 mg/dL (0.2-1.3); Blood Urea Nitrogen 6 mg/dL (7-17); Calcium 8.6 mg/dL (8.4-10.2); Carbon Dioxide 22 mmol/L (22-32); Chloride 107 mmol/L (98-107); Estimated Glomerular Filt Rate > 60 mL/min (>60); Globulin 3.1 g/dL (1.7-4.1); Glucose 82 mg/dL (70-100); HEMOLYSIS < 15 (0-50); Lactate Dehydrogenase 383 U/L (313-618); Potassium 3.9 mmol/L (3.4-5.1); Sodium 135 mmol/L (137-145); Total Protein 6.7 g/dL (6.3-8.2); Uric Acid 3.8 mg/dL (2.5-6.2)
[2021-08-22 14:53] LABS: Creatinine Urine Random 55.9 mg/dL; Protein (Total) Urine Random 9 mg/dL (0-12); Protein Creatinine Ratio Urine 0.16 GRAM/24H
== END ==
PROVIDERS: PCP Family Medicine; Referring Provider Obstetrics & Gynecology; Visit Provider Obstetrics & Gynecology
DX: O16.3 Unspecified maternal hypertension, third trimester (principal)
CPT/HCPCS: 36415; 80053; 82570; 83615; 84156; 84550; 85025

== ENCOUNTER 2021-08-22 08:44 | Outpatient (CLI) | payer OTHER, MEDICAID, SELFPAY ==
--- NOTE | 2021-08-22 09:33 | PM.OBTRLD ---
Visit Information Visit Information Date of evaluation: 08/22/21 Primary OB Provider: Janeth Thomas Reason for Evaluation: Yes non-stress test Comments/Additional reasons for admission: This patient is a 30yo P1 @33+4 with gHTN, presenting for an NST. Vital Signs Vital Signs: 122/76, HR 88 PFSH Medical History Anxiety Chicken pox (~1992) Depression Elevated blood pressure reading in office with white coat syndrome, with diagnosis of hypertension Fracture of left wrist Frequent epistaxis (~09/2019) Hair loss (~09/2019) Headache Heavy menstrual period Hx of being hospitalized Migraines Ovarian cyst (~2008) Rosacea (~2015) Vacuum-assisted vaginal delivery (~06/11/20) Wears glasses Yeast infection (~2018) Surgical History Anesthesia H/O wisdom tooth extraction (~2010) History of tonsillectomy (~1997) Family History Mother Hyperlipidemia Hypertension Lupus (systemic lupus erythematosus) Neuropathy Depression Grandmother Cancer Lung cancer Smoker Breast cancer Grandfather Unknown whether patient has any health problems Family estrangement Father Unknown whether patient has any health problems Family estrangement Grandfather Family estrangement Unknown whether patient has any health problems Grandmother Breast cancer Family estrangement Family/Other Congenital heart anomaly IV drug user Status post cardiac surgery Sister Bipolar 1 disorder Social History marital status: number of children: 1 household members: spouse and children lives independently: Yes caregiver/support person: No housing: house pets and animals: No education level: college occupational status: unemployed current occupational exposures/hazards: No 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 ) Type(s) of exercise: walking frequency: 5-6 times per week duration: 45-60 minutes/day Evaluation Evaluation Baseline heart rate: 140 Variability: Moderate (11-25) monitor accelerations: Present Monitor Decelerations: Absent Category of Tracing: Reactive Status: Category l Diagnosis, Plan/Disposition Plan/Disposition Plan: Home with scheduled precautions. OB Disposition: home
== END 2021-08-22 09:35 | disposition home or self-care (01) ==
LOC: LABOR 09:03 → OB 08-24 07:12
PROVIDERS: PCP Family Medicine; Referring Provider Obstetrics & Gynecology; Visit Provider Obstetrics & Gynecology
DX: O13.3 Gestational [pregnancy-induced] hypertension without significant proteinuria, third trimester (principal); Z3A.33 33 weeks gestation of pregnancy
CPT/HCPCS: 36415; 59025; 80053; 82570; 83615; 84156; 84550; 85025; G0378; G0379

== ENCOUNTER 2021-08-24 09:57 | Outpatient (CLI) | payer OTHER, MEDICAID, SELFPAY ==
--- NOTE | 2021-08-24 10:52 | P.TNLD_ITS ---
Visit Information Visit Information Date of evaluation: 08/24/21 Primary OB Provider: Janeth Thomas Reason for Evaluation: Yes non-stress test Comments/Additional reasons for admission: This patient is a 30yo P1 @33 wks with gHTN, presenting for a scheduled NST. Vital Signs Vital Signs: 132/78, HR 84 PFSH Medical History Anxiety Chicken pox (~1992) Depression Elevated blood pressure reading in office with white coat syndrome, with diagn osis of hypertension Fracture of left wrist Frequent epistaxis (~09/2019) Hair loss (~09/2019) Headache Heavy menstrual period Hx of being hospitalized Migraines Ovarian cyst (~2008) Rosacea (~2015) Vacuum-assisted vaginal delivery (~06/11/20) Wears glasses Yeast infection (~2018) Surgical History Anesthesia H/O wisdom tooth extraction (~2010) History of tonsillectomy (~1997) Family History Mother Hyperlipidemia Hypertension Lupus (systemic lupus erythematosus) Neuropathy Depression Grandmother Cancer Lung cancer Smoker Breast cancer Grandfather Unknown whether patient has any health problems Family estrangement Father Unknown whether patient has any health problems Family estrangement Grandfather Family estrangement Unknown whether patient has any health problems Grandmother Breast cancer Family estrangement Family/Other Congenital heart anomaly IV drug user Status post cardiac surgery Sister Bipolar 1 disorder Social History marital status: number of children: 1 household members: spouse and children lives independently: Yes caregiver/support person: No housing: house pets and animals: No education level: college occupational status: unemployed current occupational exposures/hazards: No 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 ) Type(s) of exercise: walking frequency: 5-6 times per week duration: 45-60 minutes/day Evaluation Evaluation Baseline heart rate: 135 Variability: Moderate (11-25) monitor accelerations: Present Monitor Decelerations: Absent Category of Tracing: Reactive Status: Category l Diagnosis, Plan/Disposition Plan/Disposition Plan: Home with routine precautions. OB Disposition: home
== END 2021-08-24 11:05 | disposition home or self-care (01) ==
LOC: LABOR 10:13 → OB 08-30 14:25
PROVIDERS: PCP Family Medicine; Referring Provider Obstetrics & Gynecology; Visit Provider Obstetrics & Gynecology
DX: O13.3 Gestational [pregnancy-induced] hypertension without significant proteinuria, third trimester (principal); Z3A.33 33 weeks gestation of pregnancy
CPT/HCPCS: 59025; G0378; G0379

== ENCOUNTER → 2021-09-01 17:17 | Outpatient (CLI) | payer MEDICAID, SELFPAY ==
[2021-09-01 18:32] LABS: Add Manual Diff / Slide Review NO; Basophils Absolute Auto 0 /uL (0-100); Basophils Percent Auto 0.3 % (0-2); Eosinophils Absolute Auto 0 /uL (0-450); Eosinophils Percent Auto 0.5 % (2-4); Hematocrit 33.5 % (36-46); Hemoglobin 11.7 g/dL (12.0-16.0); Lymphocytes Absolute Auto 2100 /uL (1100-4500); Lymphocytes Percent Auto 20.6 % (25-40); Mean Corpuscular HGB Conc 35.1 % (30-36); Mean Corpuscular Volume 91.3 fL (80-100); Monocytes Absolute Auto 700 /uL (0-900); Monocytes Percent Auto 6.3 % (3-14); Neutrophils Absolute Auto 7500 /uL (1500-7000); Neutrophils Percent Auto 72.3 % (50-75); Platelet Count 270 X10^3/uL (150-400); Red Blood Cell Count 3.67 X10^6/uL (4.0-5.2); Red Cell Distribution Width 12.8 % (11.6-14.8); White Blood Cell Count 10.3 X10^3/uL (4.5-11.0)
[2021-09-01 19:10] LABS: Alanine Aminotransferase 20 IU/L (<35); Albumin 3.9 g/dL (3.5-5.0); Albumin Globulin Ratio 1.1 (1.0-2.8); Alkaline Phosphatase 93 U/L (38-126); Aspartate Aminotransferase 26 IU/L (14-36); BUN Creatinine Ratio 13.5 (6-22); Bilirubin Total 0.3 mg/dL (0.2-1.3); Blood Urea Nitrogen 7 mg/dL (7-17); Calcium 8.7 mg/dL (8.4-10.2); Carbon Dioxide 23 mmol/L (22-32); Chloride 105 mmol/L (98-107); Estimated Glomerular Filt Rate > 60 mL/min (>60); Globulin 3.4 g/dL (1.7-4.1); Glucose 88 mg/dL (70-100); HEMOLYSIS < 15 (0-50); Potassium 3.9 mmol/L (3.4-5.1); Sodium 137 mmol/L (137-145); Total Protein 7.3 g/dL (6.3-8.2); Uric Acid 3.5 mg/dL (2.5-6.2)
[2021-09-01 19:11] LABS: Protein (Total) Urine Random 7 mg/dL (0-12); Protein Creatinine Ratio Urine 0.05 GRAM/24H
[2021-09-01 19:46] LABS: Lactate Dehydrogenase 418 U/L (313-618)
== END ==
PROVIDERS: PCP Family Medicine; Referring Provider Obstetrics & Gynecology; Visit Provider Obstetrics & Gynecology
DX: O16.3 Unspecified maternal hypertension, third trimester (principal)
CPT/HCPCS: 36415; 80053; 82570; 83615; 84156; 84550; 85025

== ENCOUNTER 2021-09-01 17:19 | Outpatient (CLI) | payer OTHER, MEDICAID, SELFPAY ==
--- NOTE | 2021-09-01 17:52 | PM.OBTRLD ---
Visit Information Visit Information Date of evaluation: 09/01/21 Primary OB Provider: Janeth Thomas Reason for Evaluation: Yes non-stress test Comments/Additional reasons for admission: 30yo P1 @35 weeks with gHTN on 100mg BID labetalol presenting for scheduled NST. Vital Signs Vital Signs: 136/89, HR 101 PFSH Medical History Anxiety Chicken pox (~1992) Depression Elevated blood pressure reading in office with white coat syndrome, with diagnosis of hypertension Fracture of left wrist Frequent epistaxis (~09/2019) Hair loss (~09/2019) Headache Heavy menstrual period Hx of being hospitalized Migraines Ovarian cyst (~2008) Rosacea (~2015) Vacuum-assisted vaginal delivery (~06/11/20) Wears glasses Yeast infection (~2018) Surgical History Anesthesia H/O wisdom tooth extraction (~2010) History of tonsillectomy (~1997) Family History Mother Hyperlipidemia Hypertension Lupus (systemic lupus erythematosus) Neuropathy Depression Grandmother Cancer Lung cancer Smoker Breast cancer Grandfather Unknown whether patient has any health problems Family estrangement Father Unknown whether patient has any health problems Family estrangement Grandfather Family estrangement Unknown whether patient has any health problems Grandmother Breast cancer Family estrangement Family/Other Congenital heart anomaly IV drug user Status post cardiac surgery Sister Bipolar 1 disorder Social History marital status: number of children: 1 household members: spouse and children lives independently: Yes caregiver/support person: No housing: house pets and animals: No education level: college occupational status: unemployed current occupational exposures/hazards: No 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 ) Type(s) of exercise: walking frequency: 5-6 times per week duration: 45-60 minutes/day Evaluation Evaluation Baseline heart rate: 135 Variability: Average (6-10) monitor accelerations: Present Monitor Decelerations: Absent Category of Tracing: Reactive Status: Category l Diagnosis, Plan/Disposition Plan/Disposition Plan: Home with routine precautions and follow up. OB Disposition: home
== END 2021-09-01 17:56 | disposition home or self-care (01) ==
LOC: LABOR 17:22 → OB 09-04 10:20
PROVIDERS: PCP Family Medicine; Referring Provider Obstetrics & Gynecology; Visit Provider Obstetrics & Gynecology
DX: O13.3 Gestational [pregnancy-induced] hypertension without significant proteinuria, third trimester (principal); Z3A.35 35 weeks gestation of pregnancy
CPT/HCPCS: 36415; 59025; 80053; 82570; 83615; 84156; 84550; 85025; G0378; G0379

== ENCOUNTER 2021-09-07 14:30 | Outpatient (CLI) | payer OTHER, MEDICAID, SELFPAY | END 2021-09-07 15:10 | disposition home or self-care (01) | LOC: LABOR 14:42 → OB 09-11 10:50 | PROVIDERS: PCP Family Medicine; Referring Provider Obstetrics & Gynecology; Visit Provider Obstetrics & Gynecology | DX: O13.3 Gestational [pregnancy-induced] hypertension without significant proteinuria, third trimester (principal); Z3A.35 35 weeks gestation of pregnancy | CPT/HCPCS: 36415; 59025; 80053; 82570; 83615; 84156; 84550; 85025; 87653; G0378; G0379 ==

== ENCOUNTER → 2021-09-07 15:35 | Outpatient (CLI) | payer OTHER, MEDICAID, SELFPAY ==
[2021-09-07 19:43] LABS: Creatinine Urine Random 184.1 mg/dL; Protein (Total) Urine Random 6 mg/dL (0-12); Protein Creatinine Ratio Urine 0.03 GRAM/24H
[2021-09-08 13:53] LABS: Strep Grp B PCR NEG for Grp B Strep
== END ==
PROVIDERS: PCP Family Medicine; Visit Provider Obstetrics & Gynecology
DX: O16.3 Unspecified maternal hypertension, third trimester (principal); Z3A.35 35 weeks gestation of pregnancy
CPT/HCPCS: 82570; 84156; 87653

== ENCOUNTER → 2021-09-07 16:00 | Outpatient (CLI) | payer OTHER, MEDICAID, SELFPAY ==
[2021-09-07 17:15] LABS: Add Manual Diff / Slide Review NO; Basophils Absolute Auto 0 /uL (0-100); Basophils Percent Auto 0.4 % (0-2); Eosinophils Absolute Auto 0 /uL (0-450); Eosinophils Percent Auto 0.3 % (2-4); Hemoglobin 11.6 g/dL (12.0-16.0); Lymphocytes Absolute Auto 2100 /uL (1100-4500); Lymphocytes Percent Auto 18.1 % (25-40); Mean Corpuscular HGB Conc 34.2 % (30-36); Mean Corpuscular Hemoglobin 31.4 PG (26-34); Mean Corpuscular Volume 91.6 fL (80-100); Monocytes Absolute Auto 800 /uL (0-900); Monocytes Percent Auto 6.7 % (3-14); Neutrophils Absolute Auto 8500 /uL (1500-7000); Neutrophils Percent Auto 74.5 % (50-75); Platelet Count 283 X10^3/uL (150-400); Red Blood Cell Count 3.71 X10^6/uL (4.0-5.2); Red Cell Distribution Width 13.1 % (11.6-14.8); White Blood Cell Count 11.4 X10^3/uL (4.5-11.0)
[2021-09-07 17:35] LABS: Alanine Aminotransferase 17 IU/L (<35); Albumin 3.7 g/dL (3.5-5.0); Albumin Globulin Ratio 1.2 (1.0-2.8); Alkaline Phosphatase 103 U/L (38-126); Aspartate Aminotransferase 25 IU/L (14-36); BUN Creatinine Ratio 12.5 (6-22); Bilirubin Total 0.3 mg/dL (0.2-1.3); Blood Urea Nitrogen 6 mg/dL (7-17); Calcium 8.9 mg/dL (8.4-10.2); Carbon Dioxide 20 mmol/L (22-32); Chloride 106 mmol/L (98-107); Estimated Glomerular Filt Rate > 60 mL/min (>60); Glucose 80 mg/dL (70-100); HEMOLYSIS < 15 (0-50); Lactate Dehydrogenase 479 U/L (313-618); Sodium 135 mmol/L (137-145); Total Protein 6.7 g/dL (6.3-8.2); Uric Acid 3.6 mg/dL (2.5-6.2)
== END ==
PROVIDERS: PCP Family Medicine; Referring Provider Obstetrics & Gynecology; Visit Provider Obstetrics & Gynecology
DX: O16.3 Unspecified maternal hypertension, third trimester (principal)
CPT/HCPCS: 36415; 80053; 83615; 84550; 85025

== ENCOUNTER 2021-09-17 18:25 | Inpatient (IN) | payer OTHER, MEDICAID, SELFPAY ==
[2021-09-17 19:28] VITALS: BP 142/85
[2021-09-17 20:07] LABS: Add Manual Diff / Slide Review NO; Basophils Absolute Auto 0 /uL (0-100); Basophils Percent Auto 0.4 % (0-2); Eosinophils Absolute Auto 0 /uL (0-450); Eosinophils Percent Auto 0.3 % (2-4); Hematocrit 33.9 % (36-46); Hemoglobin 11.7 g/dL (12.0-16.0); Lymphocytes Absolute Auto 2200 /uL (1100-4500); Lymphocytes Percent Auto 19.3 % (25-40); Mean Corpuscular HGB Conc 34.5 % (30-36); Mean Corpuscular Hemoglobin 31.7 PG (26-34); Mean Corpuscular Volume 91.7 fL (80-100); Monocytes Absolute Auto 700 /uL (0-900); Monocytes Percent Auto 5.8 % (3-14); Neutrophils Absolute Auto 8400 /uL (1500-7000); Neutrophils Percent Auto 74.2 % (50-75); Platelet Count 248 X10^3/uL (150-400); Red Cell Distribution Width 13.1 % (11.6-14.8); White Blood Cell Count 11.4 X10^3/uL (4.5-11.0)
[2021-09-17] MEDS: DINOPROSTONE VAG (CERVIDIL) 10 MG VAG (20:19)
[2021-09-17 20:34] LABS: COVID19 -Nasal RAPID Negative (Negative)
[2021-09-17 20:42] LABS: Alanine Aminotransferase 18 IU/L (<35); Albumin 3.7 g/dL (3.5-5.0); Albumin Globulin Ratio 1.2 (1.0-2.8); Alkaline Phosphatase 95 U/L (38-126); Aspartate Aminotransferase 24 IU/L (14-36); BUN Creatinine Ratio 13.7 (6-22); Bilirubin Total 0.4 mg/dL (0.2-1.3); Blood Urea Nitrogen 7 mg/dL (7-17); Calcium 8.7 mg/dL (8.4-10.2); Carbon Dioxide 19 mmol/L (22-32); Chloride 108 mmol/L (98-107); Estimated Glomerular Filt Rate > 60 mL/min (>60); Globulin 3.1 g/dL (1.7-4.1); Glucose 119 mg/dL (70-100); HEMOLYSIS < 15 (0-50); Lactate Dehydrogenase 387 U/L (313-618); Potassium 3.7 mmol/L (3.4-5.1); Sodium 136 mmol/L (137-145); Total Protein 6.8 g/dL (6.3-8.2); Uric Acid 3.6 mg/dL (2.5-6.2)
[2021-09-17 21:03] LABS: Creatinine Urine Random 161.9 mg/dL
[2021-09-17 21:06] LABS: Protein (Total) Urine Random < 5 mg/dL (0-12); Protein Creatinine Ratio Urine < 0.03 GRAM/24H
[2021-09-17 21:07] VITALS: BP 147/71; PULSE 94
[2021-09-17] MEDS: LABETALOL 100 MG TABLET PO (21:07)
[2021-09-17] MEDS: ZOLPIDEM 5 MG TABLET PO (21:51)
[2021-09-18] MEDS: miSOPROStoL 25 MCG TABLET VAG ×3 (09:42→17:45)
[2021-09-18] MEDS: ACETAMINOPHEN 325 MG TABLET 650 MG PO ×2 (10:49→17:56)
[2021-09-18 21:03] VITALS: BP 104/60; PULSE 82
[2021-09-18] MEDS: LABETALOL 100 MG TABLET PO (21:03)
--- NOTE | 2021-09-18 21:18 | P.HPOB_ITS ---
OB HPI Date/Time Date of admission: 09/18/21 Date Patient Seen: 09/18/21 Time Patient Seen: 07:30 History of Present Condition Chief complaint: MATERNITY BRITTNEY Calculator Estimated Delivery Date Method Current WG Current Estimate 10/06/21 LMP (Certain) 37w 3d Estimated Gestational Age (weeks): 37+3 : 2 Para: 1 care: good care, initiated at week # (9), number of visits (15) and pounds weight gain (11) Dating criteria OB: LMP confirmed by 1st trimester US Ultrasounds: normal 1st trimester US and normal mid trimester US Obstetrical complications: gestational hypertension Medical complications OB: none Indications Indication for induction OB: gestational HTN/pre-eclampsia Preadmission Labs Last OB Lab Results: Blood Type O Positive 09/17/21 17:56 Antibody Screen Negative 09/17/21 17:56 Hematocrit 33.9 % (36-46) L 09/17/21 17:56 Hemoglobin 11.7 g/dL (12.0-16.0) L 09/17/21 17:56 Hepatitis B Surface Antigen Negative s/c (NEGATIVE) 03/03/21 14 :27 Hepatitis C Antibody Negative s/c (NEGATIVE) 03/03/21 14:27 Rubella Antibody 12.9 IU/mL (>15) L 03/03/21 14:27 Varicella-Zoster IgG Antibody 1253 index (Immune >165) 03/03/21 14:27 Glucose 1 Hour 142 mg/dL (76-139) H 07/19/21 09:12 Group B Streptococcus (PCR) Neg for grp b strep 09/07/21 15:35 -: Chlamydia screen: negative, Gonorrhea screen: negative and Urine: negative -: PAP smear: Normal Genetic Screens: Cell-free DNA: Normal and Alpha-fetoprotein: Normal External Labs -: Urine: negative Prior (ies) Past Pregnancies Del. Date GA/Weeks Labor Lgth Wt Sex Route Outcome Anesthesia Place Delv Breastfeed Preg Comp Name 06/11/20 38.1 6 5 lb 6 oz Male vaginal live - full ter m epidural [facility] Dr. Lawson Formula induced hyper- gestational diabetes [place] Delivery Date: 06/11/20 Last Updated by: Jamilah Yo R.N. Increased swelling & high BP without urine protein. Induction for GDM, HTN. Laguna bulb, Pitocin. AROM with placement of laguna. HTN resolved after . Evaluation Evaluation Baseline heart rate: 120 Variability: Moderate (11-25) monitor accelerations: Present Monitor Decelerations: Absent Contraction Frequency (minutes): 0 Status: Category l Dilation (cm): 1 Effacement (%): 75 Dilation: Closed Effacement: 60-70% station: -2 Position of cervix: mid Consistency: medium Villegas score: 5 PFSH Medical History Anxiety Chicken pox (~1992) Depression Elevated blood pressure reading in office with white coat syndrome, with diagnosis of hypertension Fracture of left wrist Frequent epistaxis (~09/2019) Hair loss (~09/2019) Headache Heavy menstrual period Hx of being hospitalized Migraines Ovarian cyst (~2008) Rosacea (~2015) Vacuum-assisted vaginal delivery (~06/11/20) Wears glasses Yeast infection (~2018) Surgical History Anesthesia H/O wisdom tooth extraction (~2010) History of tonsillectomy (~1997) Family History Mother Hyperlipidemia Hypertension Lupus (systemic lupus erythematosus) Neuropathy Depression Grandmother Cancer Lung cancer Smoker Breast cancer Grandfather Unknown whether patient has any health problems Family estrangement Father Unknown whether patient has any health problems Family estrangement Grandfather Family estrangement Unknown whether patient has any health problems Grandmother Breast cancer Family estrangement Family/Other Congenital heart anomaly IV drug user Status post cardiac surgery Sister Bipolar 1 disorder Social History marital status: number of children: 1 household members: spouse and children lives independently: Yes caregiver/support person: No housing: house pets and animals: No education level: college occupational status: unemployed current occupational exposures/hazards: No 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 ) Type(s) of exercise: walking frequency: 5-6 times per week duration: 45-60 minutes/day Meds Home Medications and Allergies Home Medications Medication Instructions Recorded Confirmed Type prenat.vits,cosmo,vya-ardx-misva 1 tab PO DAILY 02/16/21 09/18/21 History labetalol 100 mg tablet 100 mg PO BID gestational 08/17/21 09/18/21 Rx hypertension #60 tabs Allergies Allergy/AdvReac Type Severity Reaction Status Date / Time No Known Drug Allergies Allergy Verified 09/18/21 07:32 OB Exam Narrative Exam Narrative: Generally: Patient lying in bed, no acute distress Lungs: Clear to auscultation bilaterally Cardiovascular: Regular rate and rhythm Fundal height: 38 cm Estimated weight 6-1/2 lb Extremities: 1+ edema, 1+ DTRs Objective Labs Result Diagrams: 09/17/21 17:56 09/17/21 17:56 Assessment and Plan Assessment and Plan Assessment and Plan narrative: Assessment: 30-year-old 2 para 1 at 37-,3/7 weeks gestation with gestational hypertension Status post Cervidil last evening Unfavorable cervix Plan: Continue oral labetalol Cytotec 25 micro g intravaginal every 4 hours Expected management to spontaneous vaginal delivery Time Spent with Patient Total time spent with greater than 50% in coordination of care (as documented) at patient's floor/unit and/or counseling patient:: 15-24 minutes
--- NOTE | 2021-09-18 21:30 | PM.OBPNLAB ---
Date/Time Date Patient Seen: 09/18/21 Time Patient Seen: 21:30 Pain Control Pain control: tolerating well Pelvic Exam Dilation (cm): 1 Effacement (%): 75 station: -1 Amniotic membrane status: Intact Contractions Contractions on admission: none Monitor mode: External Contraction frequency (min): 8 Contraction intensity: Mild Status status: Category l Heart Rate Baseline: 125 Monitor Accelerations: Present Monitor Decelerations: Absent Monitor Variability: Moderate Assessment and Plan Assessment: induction ongoing and other (s/p 3 doses of Cytotec) Plan: continuous present management Comments: Possible luz elena in am
[2021-09-18] MEDS: ZOLPIDEM 5 MG TABLET PO (21:53)
[2021-09-19] MEDS: miSOPROStoL 25 MCG TABLET VAG ×3 (07:29→23:43)
[2021-09-19] MEDS: miSOPROStoL 25 MCG TABLET 50 MCG PO ×2 (11:23→15:34)
--- NOTE | 2021-09-19 17:55 | PM.OBPNLAB ---
Date/Time Date Patient Seen: 09/19/21 Time Patient Seen: 17:55 Pain Control Pain control: tolerating well Pelvic Exam Dilation (cm): 1 Effacement (%): 75 station: -1 Amniotic membrane status: Intact Contractions Contractions on admission: none Monitor mode: External Contraction intensity: Mild Status status: Category l Heart Rate Baseline: 135 Monitor Accelerations: Present Monitor Decelerations: Absent Monitor Variability: Moderate Assessment and Plan Assessment: induction ongoing Plan: other (Cytotec vaginally overnight every 4 hours)
[2021-09-19 21:41] VITALS: BP 112/66; PULSE 90
[2021-09-19] MEDS: LABETALOL 100 MG TABLET PO (21:41)
[2021-09-19] MEDS: ZOLPIDEM 5 MG TABLET PO (21:42)
[2021-09-20] MEDS: miSOPROStoL 25 MCG TABLET VAG (03:43)
[2021-09-20] MEDS: LABETALOL 100 MG TABLET PO (09:09)
[2021-09-20] MEDS: LACTATED RINGERS 1,000 ML 100 ML IV (09:51)
[2021-09-20] MEDS: OXYTOCIN PREMIX 30 UNIT/500 ML PLAST..BAG IV (09:52)
--- NOTE | 2021-09-20 10:03 | PM.OBPNLAB ---
Date/Time Date Patient Seen: 09/20/21 Time Patient Seen: 07:30 Pain Control Pain control: tolerating well Pelvic Exam Dilation (cm): 3 Effacement (%): 85 station: -1 Amniotic membrane status: Ruptured Comments: Had spontaneous rupture of membranes with copious clear amniotic fluid Contractions Monitor mode: External Contraction frequency (min): 0 Contraction intensity: Mild Status status: Category l Heart Rate Baseline: 135 Monitor Accelerations: Present Monitor Decelerations: Absent Monitor Variability: Moderate Assessment and Plan Assessment: induction ongoing Comments: Begin Pitocin augmentation Epidural prn Expectant management to
[2021-09-20] MEDS: CALCIUM CARBONATE 500 MG TAB 1000 MG PO (10:41)
[2021-09-20] MEDS: FENT 2MCG/ML BUPIV 0.125% EPI 200 MCG/100 ML PLAST..BAG 12 MCG EPIDURAL (11:40)
[2021-09-20] MEDS: ePHEDrine 50 MG/ML VIAL IV (13:12)
[2021-09-20] MEDS: IBUPROFEN 600 MG TABLET PO ×2 (17:34→23:47)
--- NOTE | 2021-09-20 18:06 | PM.OBPNLAB ---
Date/Time Date Patient Seen: 09/20/21 Time Patient Seen: 13:00 Pain Control Pain control: epidural Pelvic Exam Dilation (cm): 7 Effacement (%): 95 station: 0 Amniotic membrane status: Ruptured Contractions Contractions on admission: none Monitor mode: External Contraction frequency (min): 3 Contraction duration (min): 1 Contraction intensity: Strong/Firm Status status: Category l Heart Rate Baseline: 120 Monitor Accelerations: Present Monitor Decelerations: Variable Monitor Variability: Moderate Assessment and Plan Assessment: active labor Comments: Pitocin off Patient on her side with oxygen per face mask scalp electrode and IUPC placed
--- NOTE | 2021-09-20 18:09 | PM.OBPRVD ---
Events: Induced HTN and Labor Induction Labor & Delivery Delivery date: 09/20/21 Intrapartal Events: Intolerance Cervical ripening method: per misoprostal protocol (and Cervidil) Induction method: per pitocin protocol Delivery monitor: external FHT and external uterine Route of delivery: vacuum extraction Indication for instrumentation: nonreassuring FHR tracing (deep variable decelerations) Episiotomy description: None L&D Laceration Description: Superficial (right periurethral and itroitus ) Delivery repair: chromic Quantitative Blood Loss: 150 Anesthesia Type: Epidural Complications: None Narrative: Patient complete and pushed for 15 minutes. A vacuum was applied due to a 9 minute deceleration down to the 90s. With 3 contractions, the vertex delivered in the [place] presentation at 1:48 p.m.. The vacuum was removed. The remainder of the body delivered without difficulty and was placed on mom's abdomen. The cord was double clamped and cut after it stopped pulsing. A piece of cord for cord pH was obtained. Cord bloods were obtained. Pitocin was given in the IV fluids. The placenta delivered intact with a three-vessel cord at 1:52 p.m.. The placenta was calcified. There was a right periurethral and introital superficial tear which were repaired with 4-0 chromic. Hemostasis was achieved. Apgars 8 at 1 minute and 9 at 5 minutes. weight 5 lb 13.4 oz. Epidural analgesia. Bottle feeding. Mom and stable to recovery. Baby 1: Infant gender: Female Presentation: vertex Position: Right Occiput Anterior Placenta delivery description: Spontaneous Cord Vessel Description: 3 Vessels, Nuchal Cord (x1), Loose and Reduced (on perineum) score (1 min): 8 score (5 min): 9 weight: 5 lb 13.4 oz Plan for aftercare: Routine care
[2021-09-20] MEDS: ACETAMINOPHEN 325 MG TABLET 650 MG PO (23:46)
[2021-09-21] MEDS: IBUPROFEN 600 MG TABLET PO (06:10)
[2021-09-21 07:20] LABS: Hematocrit 33.5 % (36-46); Hemoglobin 11.5 g/dL (12.0-16.0)
[2021-09-21 08:21] VITALS: BP 132/81; PULSE 82
[2021-09-21] MEDS: DOCUSATE 100 MG CAPSULE PO (08:21)
[2021-09-21] MEDS: PRENATAL VIT,CALC/IRON/FOLIC 1 TABLET 1 TAB PO (08:21)
[2021-09-21] MEDS: LABETALOL 100 MG TABLET PO (08:21)
[2021-09-21 09:10] VITALS: BP 132/81; PULSE 81; RESP 17; TEMP 36.3
--- NOTE | 2021-10-31 07:09 | PM.OBDS.1 ---
Discharge Providers Provider Date of admission: 09/17/21 18:25 Discharge Date: 09/21/21 Primary care physician: Marisa Laguerre MD Consults: 09/20/21 09:32 Consult to Anesthesiology Urgent Comment: Consulting Provider: Anesthesiologist Reason for consultation: Epidural Has provider been notified: No Discharge provider: Indy Vu MD Summary Hospital Course Date Patient Seen: 09/21/21 Time Patient Seen: 07:30 Diagnoses: 37-3/7 weeks gestation Gestational hypertension Cervical ripening with Cervidil and Cytotec Spontaneous rupture of membrane Augmentation of labor with Pitocin Epidural analgesia Vacuum assisted vaginal delivery Hospital Course: Patient is a 30-year-old 2 para 2 who presented on September 17, 2021 for cervical ripening prior to induction of labor due to gestational hypertension. On 09/17 she received 1 dose of Cervidil. On the morning of 09/18/21 her cervix was not favorable. She received Cytotec for the next 48 hours. On 09/20 she had progressed to 3 cm/85% effaced/-1 station. She had a spontaneous rupture membranes with clear amniotic fluid. She received an epidural for pain management. She progressed to complete dilation and had a vacuum assisted vaginal delivery due to a 9 minute deceleration at approximately 1:48 p.m.. Her course was unremarkable. She was discharged home on September 21, 2021. Peripartum Data Delivery Method: Assisted Delivery (Vacuum due to 9 minute deceleration) Laceration Description: Periurethral - 1st Degree and Superficial (Introitus) Episiotomy description: None Procedures: Cervidil cervical ripening Cytotec cervical ripening Spontaneous rupture of membranes Augmentation of labor with Pitocin Epidural analgesia Vacuum assisted vaginal delivery Right periurethral and superficial introitus laceration repair complications: none [place] 1: Gender: Female Disposition of : home Status at Discharge Cognitive/behavioral status at discharge: oriented Functional status at discharge: independent ambulation Overall status at discharge: patient is progressing back to baseline Time Spent with Patient Time attestation: Total time spent providing and/or coordinating discharge services: Time spent: Less than 30 minutes Objective Labs Result Diagrams: 09/21/21 05:54 09/17/21 17:56 Exam Narrative Exam Narrative: Generally: Patient is sitting up in bed, holding , no acute distress Fundus: Firm at U -1 Extremities: Trace edema, negative [place] Discharge Plan Discharge Plan Patient Disposition: Home Provider Discharge Comment: Call with fever, chills, or bleeding vaginally more than a pad in an hour Call with headache, blurred vision, or spots before her eyes Tylenol 650 mg every 6 hours as needed Ibuprofen 600 mg every 6 hours as needed Discharge orders & Medications Prescriptions: Continued labetalol 100 mg tablet 100 mg PO BID Qty: 60 5RF prenat.vits,cosmo,wqo-fwya-pfguo Tablet 1 tab PO DAILY Follow up/Referrals: Indy Vu MD [Physician] - 6 Weeks (Post [address] Vu on 11/03/2021 @ 0900am) Diet/Activity/Treatments Diet: Regular Activity: Nothing in the vagina for 6 weeks Skin/Wound/Dressing Care Report to your healthcare provider any signs of infection, such as:: chills, fever, increased pain and unusual drainage Visit Report/Discharge Packet Instructions: Pre-eclampsia, DI for Labor and Delivery, Vaginal Stand Alone Forms: Discharge: Care Discharge Data Primary Care Provider: Marisa Laguerre
== END 2021-09-21 11:32 | disposition home or self-care (01) | DRG 560 ==
PROVIDERS: Obstetrics & Gynecology; Admitting Provider Obstetrics & Gynecology; PCP Family Medicine; Referring Provider Obstetrics & Gynecology; Visit Provider Obstetrics & Gynecology
DX: O13.4 Gestational [pregnancy-induced] hypertension without significant proteinuria, complicating childbirth (principal); O76 Abnormality in fetal heart rate and rhythm complicating labor and delivery; Z3A.37 37 weeks gestation of pregnancy; Z37.0 Single live birth; O71.82 Other specified trauma to perineum and vulva; O69.81X0 Labor and delivery complicated by cord around neck, without compression, not applicable or unspecified
CPT/HCPCS: 01967; 36415; 59050; 59200; 59409; 80053; 82570; 83615; 84156; 84550; 85014; 85018; 85025; 86850; 86900; 86901; 87635; C9803; G0379; J2590

== ENCOUNTER → 2022-07-24 11:00 | Outpatient (CLI) | payer OTHER, MEDICAID, SELFPAY ==
[2022-07-24 11:56] LABS: Add Manual Diff / Slide Review NO; Basophils Absolute Auto 0 /uL (0-100); Basophils Percent Auto 0.2 % (0-2); Eosinophils Absolute Auto 0 /uL (0-450); Eosinophils Percent Auto 0.3 % (2-4); Hematocrit 35.7 % (36-46); Hemoglobin 12.5 g/dL (12.0-16.0); Lymphocytes Absolute Auto 1700 /uL (1100-4500); Lymphocytes Percent Auto 20.8 % (25-40); Mean Corpuscular HGB Conc 34.9 % (30-36); Mean Corpuscular Volume 88.7 fL (80-100); Monocytes Absolute Auto 400 /uL (0-900); Monocytes Percent Auto 4.7 % (3-14); Neutrophils Absolute Auto 6100 /uL (1500-7000); Platelet Count 270 X10^3/uL (150-400); Red Blood Cell Count 4.02 X10^6/uL (4.0-5.2); Red Cell Distribution Width 13.4 % (11.6-14.8); White Blood Cell Count 8.2 X10^3/uL (4.5-11.0)
[2022-07-24 12:13] LABS: Alanine Aminotransferase 18 IU/L (<35); Aspartate Aminotransferase 19 IU/L (14-36); Blood Urea Nitrogen 6 mg/dL (7-17); Estimated Glomerular Filt Rate > 60 mL/min (>60); Uric Acid 3.1 mg/dL (2.5-6.2)
[2022-07-24 12:45] LABS: Hepatitis B Surface Antigen NEGATIVE s/c (NEGATIVE); Rubella Antibody IgG 13.6 IU/mL (>15)
[2022-07-24 13:00] LABS: HIV 1 & 2 Ab/Ag 4th Gen Combo NEGATIVE (NEGATIVE); Hep C Virus Ab w/Reflex Quant NEGATIVE s/c (NEGATIVE)
[2022-07-24 15:15] LABS: Protein (Total) Urine Random < 5 mg/dL (0-12)
[2022-07-25 06:36] LABS: Varicella IgG Antibody 2488 index (Immune >165)
[2022-07-25 07:36] LABS: RPR Screen Non Reactive (Non Reactive)
[2022-07-25 07:36] LABS: Labcorp Hemoglobin (Hb) A1c 5.4 % (4.8-5.6)
== END ==
PROVIDERS: PCP Family Medicine; Referring Provider Obstetrics & Gynecology; Visit Provider Obstetrics & Gynecology
DX: O16.1 Unspecified maternal hypertension, first trimester (principal); Z3A.12 12 weeks gestation of pregnancy
CPT/HCPCS: 36415; 80055; 82565; 83036; 84156; 84450; 84460; 84520; 84550; 86787; 86803; 86850; 86900; 86901; 87086; 87389

== ENCOUNTER → 2022-08-21 11:16 | Outpatient (CLI) | payer OTHER, MEDICAID, SELFPAY ==
[2022-08-23 20:07] LABS: AFP Value 15.8 ng/mL (.); Gest Age on Col Date 16.3 weeks (.); Insulin Dep Diabetes No (.); OSBR Risk 1IN 10000 (.); Results Report (.); Test Results *Screen Negative* (.)
== END ==
PROVIDERS: PCP Family Medicine; Referring Provider Specialist; Visit Provider Specialist
DX: Z34.82 Encounter for supervision of other normal pregnancy, second trimester (principal); Z3A.16 16 weeks gestation of pregnancy
CPT/HCPCS: 36415; 82105

== ENCOUNTER → 2022-10-15 17:01 | Outpatient (CLI) | payer OTHER, MEDICAID, SELFPAY ==
[2022-10-15 17:51] LABS: Hemoglobin 12.5 g/dL (12.0-16.0)
== END ==
PROVIDERS: PCP Family Medicine; Referring Provider Specialist; Visit Provider Specialist
DX: Z34.82 Encounter for supervision of other normal pregnancy, second trimester (principal); Z3A.26 26 weeks gestation of pregnancy
CPT/HCPCS: 36415; 85014; 85018

== ENCOUNTER 2022-11-03 18:23 | Observation (INO) | payer OTHER, MEDICAID, SELFPAY ==
[2022-11-03 19:05] LABS: Add Manual Diff / Slide Review NO; Basophils Absolute Auto 0 /uL (0-100); Basophils Percent Auto 0.3 % (0-2); Eosinophils Absolute Auto 0 /uL (0-450); Eosinophils Percent Auto 0.4 % (2-4); Hematocrit 33.9 % (36-46); Lymphocytes Absolute Auto 2100 /uL (1100-4500); Lymphocytes Percent Auto 19.5 % (25-40); Mean Corpuscular HGB Conc 35.5 % (30-36); Mean Corpuscular Volume 90.2 fL (80-100); Monocytes Absolute Auto 700 /uL (0-900); Monocytes Percent Auto 6.2 % (3-14); Neutrophils Absolute Auto 7700 /uL (1500-7000); Neutrophils Percent Auto 73.6 % (50-75); Platelet Count 262 X10^3/uL (150-400); Red Blood Cell Count 3.75 X10^6/uL (4.0-5.2); Red Cell Distribution Width 13.5 % (11.6-14.8); White Blood Cell Count 10.5 X10^3/uL (4.5-11.0)
[2022-11-03 19:13] LABS: Aspartate Aminotransferase 22 IU/L (14-36); BUN Creatinine Ratio 13.5 (6-22); Blood Urea Nitrogen 7 mg/dL (7-17); Estimated Glomerular Filt Rate > 60 mL/min (>60); Uric Acid 3.4 mg/dL (2.5-6.2)
[2022-11-03 19:27] LABS: Protein (Total) Urine Random 14 mg/dL (0-12)
[2022-11-03 19:56] LABS: Creatinine Urine Random 18.9 mg/dL; Protein (Total) Urine Random 14 mg/dL (0-12); Protein Creatinine Ratio Urine 0.74 GRAM/24H
[2022-11-03] MEDS: hydrOXYzine pamoate 25 MG CAPSULE PO ×2 (20:28→20:33)
[2022-11-03] MEDS: ACETAMINOPHEN 325 MG TABLET 975 MG PO (20:28)
== END 2022-11-03 20:40 | disposition home or self-care (01) ==
LOC: LABOR 18:26
PROVIDERS: Admitting Provider Obstetrics & Gynecology; PCP Family Medicine; Referring Provider Obstetrics & Gynecology; Visit Provider Obstetrics & Gynecology
DX: O36.8120 Decreased fetal movements, second trimester, not applicable or unspecified (principal); O13.2 Gestational [pregnancy-induced] hypertension without significant proteinuria, second trimester; Z3A.26 26 weeks gestation of pregnancy
CPT/HCPCS: 36415; 59025; 82570; 84156; 84450; 84550; 85025; G0378; G0379

== ENCOUNTER 2022-11-16 09:06 | Outpatient (CLI) | payer OTHER, MEDICAID, SELFPAY | END 2022-11-16 09:50 | disposition home or self-care (01) | LOC: OB 11-22 12:19 | PROVIDERS: PCP Family Medicine; Referring Provider Obstetrics & Gynecology; Visit Provider Obstetrics & Gynecology | DX: O13.3 Gestational [pregnancy-induced] hypertension without significant proteinuria, third trimester (principal); Z3A.28 28 weeks gestation of pregnancy | CPT/HCPCS: 59025; G0378; G0379 ==

== ENCOUNTER 2022-11-23 09:07 | Outpatient (CLI) | payer OTHER, MEDICAID, SELFPAY | END 2022-11-23 09:53 | disposition home or self-care (01) | LOC: OB 11-26 07:20 | PROVIDERS: PCP Family Medicine; Referring Provider Obstetrics & Gynecology; Visit Provider Obstetrics & Gynecology | DX: O13.3 Gestational [pregnancy-induced] hypertension without significant proteinuria, third trimester (principal); Z3A.29 29 weeks gestation of pregnancy | CPT/HCPCS: 59025; G0378; G0379 ==

== ENCOUNTER 2022-11-30 15:13 | Outpatient (CLI) | payer OTHER, MEDICAID, SELFPAY | END 2022-11-30 16:10 | disposition home or self-care (01) | LOC: OB 12-04 06:15 | PROVIDERS: PCP Internal Medicine Cardiovascular Disease; Referring Provider Obstetrics & Gynecology; Visit Provider Obstetrics & Gynecology | DX: O13.3 Gestational [pregnancy-induced] hypertension without significant proteinuria, third trimester (principal); Z3A.30 30 weeks gestation of pregnancy | CPT/HCPCS: 59025; G0378; G0379 ==

== ENCOUNTER 2022-12-07 09:04 | Outpatient (CLI) | payer OTHER, MEDICAID, SELFPAY ==
[2022-12-07 09:24] LABS: Add Manual Diff / Slide Review NO; Basophils Absolute Auto 0 /uL (0-100); Basophils Percent Auto 0.3 % (0-2); Eosinophils Absolute Auto 0 /uL (0-450); Eosinophils Percent Auto 0.6 % (2-4); Hematocrit 34.4 % (36-46); Hemoglobin 11.9 g/dL (12.0-16.0); Lymphocytes Absolute Auto 1600 /uL (1100-4500); Lymphocytes Percent Auto 19.4 % (25-40); Mean Corpuscular HGB Conc 34.7 % (30-36); Mean Corpuscular Hemoglobin 31.9 PG (26-34); Mean Corpuscular Volume 92.1 fL (80-100); Monocytes Absolute Auto 400 /uL (0-900); Monocytes Percent Auto 5.2 % (3-14); Neutrophils Absolute Auto 6100 /uL (1500-7000); Neutrophils Percent Auto 74.5 % (50-75); Platelet Count 242 X10^3/uL (150-400); Red Blood Cell Count 3.74 X10^6/uL (4.0-5.2); Red Cell Distribution Width 13.3 % (11.6-14.8); White Blood Cell Count 8.2 X10^3/uL (4.5-11.0)
[2022-12-07 09:36] LABS: Aspartate Aminotransferase 21 IU/L (14-36); BUN Creatinine Ratio 12.8 (6-22); Blood Urea Nitrogen 6 mg/dL (7-17); Estimated Glomerular Filt Rate > 60 mL/min (>60); Uric Acid 3.6 mg/dL (2.5-6.2)
[2022-12-07 09:48] LABS: Creatinine Urine Random 72.4 mg/dL; Protein (Total) Urine Random 7 mg/dL (0-12); Protein Creatinine Ratio Urine 0.09 GRAM/24H
== END 2022-12-07 09:52 | disposition home or self-care (01) ==
LOC: LABOR 09:57 → OB 12-10 11:58
PROVIDERS: PCP Internal Medicine Cardiovascular Disease; Referring Provider Obstetrics & Gynecology; Visit Provider Obstetrics & Gynecology
DX: O13.3 Gestational [pregnancy-induced] hypertension without significant proteinuria, third trimester (principal); O99.891 Other specified diseases and conditions complicating pregnancy; R51.9 Headache, unspecified
CPT/HCPCS: 36415; 59025; 82570; 84156; 84450; 84550; 85025; G0378; G0379

== ENCOUNTER 2022-12-21 09:12 | Outpatient (CLI) | payer OTHER, MEDICAID, SELFPAY | END 2022-12-21 09:57 | disposition home or self-care (01) | LOC: OB 12-26 06:15 | PROVIDERS: PCP Internal Medicine Cardiovascular Disease; Referring Provider Obstetrics & Gynecology; Visit Provider Obstetrics & Gynecology | DX: O13.3 Gestational [pregnancy-induced] hypertension without significant proteinuria, third trimester (principal); Z3A.33 33 weeks gestation of pregnancy | CPT/HCPCS: 59025; G0378; G0379 ==

== ENCOUNTER 2022-12-27 17:12 | Outpatient (CLI) | payer OTHER, MEDICAID, SELFPAY ==
[2022-12-27 17:32] LABS: Add Manual Diff / Slide Review NO; Basophils Absolute Auto 0 /uL (0-100); Basophils Percent Auto 0.5 % (0-2); Eosinophils Absolute Auto 100 /uL (0-450); Eosinophils Percent Auto 0.5 % (2-4); Hemoglobin 11.8 g/dL (12.0-16.0); Lymphocytes Absolute Auto 1700 /uL (1100-4500); Lymphocytes Percent Auto 16.8 % (25-40); Mean Corpuscular HGB Conc 34.6 % (30-36); Mean Corpuscular Hemoglobin 31.5 PG (26-34); Monocytes Absolute Auto 600 /uL (0-900); Monocytes Percent Auto 5.6 % (3-14); Neutrophils Absolute Auto 7800 /uL (1500-7000); Neutrophils Percent Auto 76.6 % (50-75); Platelet Count 238 X10^3/uL (150-400); Red Blood Cell Count 3.73 X10^6/uL (4.0-5.2); Red Cell Distribution Width 13.2 % (11.6-14.8); White Blood Cell Count 10.2 X10^3/uL (4.5-11.0)
[2022-12-27 17:57] LABS: Aspartate Aminotransferase 21 IU/L (14-36); BUN Creatinine Ratio 15.6 (6-22); Blood Urea Nitrogen 7 mg/dL (7-17); Estimated Glomerular Filt Rate > 60 mL/min (>60); Uric Acid 3.3 mg/dL (2.5-6.2)
--- NOTE | 2022-12-27 18:32 | P.TNLD_ITS ---
Visit Information Visit Information Date of evaluation: 12/27/22 Primary OB Provider: Indy Vu On-call OB Provider: Sonia Alejandra Reason for Evaluation: Yes other Comments/Additional reasons for admission: Gestational hypertension Vital Signs Vital Signs: 130/80s [facility] Medical History Anxiety Chicken pox (~1992) Contraception management Depression Elevated blood pressure reading in office with white coat syndrome, with diagnosis of hypertension Fracture of left wrist Frequent epistaxis (~09/2019) Gestational diabetes Hair loss (~09/2019) Headache Heavy menstrual period Hx of being hospitalized Hypertension affecting in third trimester Migraines Ovarian cyst (~2008) anxiety induced hypertension Rosacea (~2015) Vacuum-assisted vaginal delivery (~06/11/20) Wears glasses Yeast infection (~2018) Surgical History Anesthesia H/O wisdom tooth extraction (~2010) History of tonsillectomy (~1997) Family History Mother Hyperlipidemia Hypertension Lupus (systemic lupus erythematosus) Neuropathy Depression Stroke Grandmother Cancer Lung cancer Smoker Breast cancer Grandfather Unknown whether patient has any health problems Family estrangement Father Unknown whether patient has any health problems Family estrangement Grandfather Family estrangement Unknown whether patient has any health problems Grandmother Breast cancer Family estrangement Family/Other Congenital heart anomaly IV drug user Status post cardiac surgery Sister Bipolar 1 disorder Social History marital status: number of children: 2 household members: spouse and children lives independently: Yes caregiver/support person: Yes housing: house pets and animals: Yes education level: college occupational status: unemployed current occupational exposures/hazards: No 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 travel history: over 6 months ago seatbelt use: always water heater temp set < 120 deg: Yes working smoke detector in home: Yes fire extinguisher in home: Yes carbon monox detector in home: Yes firearms in home: No do you feel safe at home: Yes Smoking Status: Never smoker second hand exposure: No alcohol intake: former substance use type: does not use during the past year weight has: increased > 10 lbs well-balanced diet: about half the time daily servings fruits/ve-4 caffeine: Yes (aware of 200mg limit) Type(s) of exercise: walking frequency: 5-6 times per week duration: 45-60 minutes/day Review of Systems Review of Systems ROS: Yes All systems reviewed with the patient and are negative except as otherwise documented Cardiovascular Cardiovascular: Reports leg edema Exam Const General: comfortable Orientation: alert Eyes General: appearance normal, both eyes and all related structures Resp Effort & Inspection: normal respiratory effort Cardio Rate: regular rate GI Palpation: soft Bimanual Exam- Vagina & Uterus: non-tender Neuro General: patient alert Extrem General: edema (+2) Psych Appearance: grossly normal Objective Labs 12/27/22 17:25 12/27/22 17:25 Labs: Laboratory Results - last 24 hr 12/27/22 12/27/22 17:25 17:25 WBC 10.2 RBC 3.73 L Hgb 11.8 L Hct 34.0 L MCV 91.0 MCH 31.5 MCHC 34.6 RDW 13.2 Plt Count 238 Neut % (Auto) 76.6 H Lymph % (Auto) 16.8 L [place] % (Auto) 5.6 Eos % (Auto) 0.5 L Baso % (Auto) 0.5 Neut # (Auto) 7800 H Lymph # (Auto) 1700 [place] # (Auto) 600 Eos # (Auto) 100 Baso # (Auto) 0 BUN 7 Creatinine 0.45 L Estimated GFR > 60 BUN/Creatinine Ratio 15.6 Uric Acid 3.3 AST 21 Evaluation Evaluation Baseline heart rate: 130 Variability: Moderate (11-25) monitor accelerations: Present (15x15) Monitor Decelerations: Absent Contraction Frequency (minutes): 0 Category of Tracing: Reactive Status: Category l Diagnosis, Plan/Disposition Final Diagnosis (1) Gestational hypertension affecting third : Status: Acute Plan/Disposition Plan: 32yo at 34.4w presenting with concern of elevated BP 130/90s at home. She was diagnosed with gestational hypertension this , and she also had G HTN prior pregnancies. She is taking labetalol 200mg am, 100mg midday and then 200mg qhs. Denies visual disturbances. Headache last night but resolved by this morning. Denies SOB or abdominal pain. She does have feet swelling which has started to worsen. BP normal range in triage. Labs were obtained and benign. She feels comfortable going home. NST reactive VSS Labs as above 32yo at 34.4w with gestational hypertension third trimester, controlled - Preeclampsia precautions - Continue labetalol - Discharge to home, follow up as scheduled OB Disposition: home
[2022-12-27 18:36] LABS: Creatinine Urine Random 219.9 mg/dL
[2022-12-27 18:42] LABS: Protein (Total) Urine Random < 5 mg/dL (0-12); Protein Creatinine Ratio Urine 0.02 GRAM/24H
== END 2022-12-27 18:30 | disposition home or self-care (01) ==
LOC: LABOR 18:49 → OB 01-02 12:54
PROVIDERS: PCP Internal Medicine Cardiovascular Disease; Referring Provider Obstetrics & Gynecology; Visit Provider Obstetrics & Gynecology
DX: O13.3 Gestational [pregnancy-induced] hypertension without significant proteinuria, third trimester (principal); Z3A.34 34 weeks gestation of pregnancy
CPT/HCPCS: 36415; 59025; 82570; 84156; 84450; 84550; 85025; G0378; G0379

== ENCOUNTER 2022-12-31 17:00 | Outpatient (CLI) | payer OTHER, MEDICAID, SELFPAY ==
--- NOTE | 2022-12-31 17:46 | P.TNLD_ITS ---
Visit Information Visit Information Date of evaluation: 12/31/22 Primary OB Provider: Indy Vu On-call OB Provider: Sandy Lawson Reason for Evaluation: Yes non-stress test non-stress test reason: diabetes and hypertension/pre-eclampsia Vital Signs Vital Signs: Blood pressure 133/74, pulse of 89, temperature 36.2? [facility] Medical History Anxiety Chicken pox (~1992) Contraception management Depression Elevated blood pressure reading in office with white coat syndrome, with diagnosis of hypertension Fracture of left wrist Frequent epistaxis (~09/2019) Gestational diabetes Hair loss (~09/2019) Headache Heavy menstrual period Hx of being hospitalized Hypertension affecting in third trimester Migraines Ovarian cyst (~2008) anxiety induced hypertension Rosacea (~2015) Vacuum-assisted vaginal delivery (~06/11/20) Wears glasses Yeast infection (~2018) Surgical History Anesthesia H/O wisdom tooth extraction (~2010) History of tonsillectomy (~1997) Family History Mother Hyperlipidemia Hypertension Lupus (systemic lupus erythematosus) Neuropathy Depression Stroke Grandmother Cancer Lung cancer Smoker Breast cancer Grandfather Unknown whether patient has any health problems Family estrangement Father Unknown whether patient has any health problems Family estrangement Grandfather Family estrangement Unknown whether patient has any health problems Grandmother Breast cancer Family estrangement Family/Other Congenital heart anomaly IV drug user Status post cardiac surgery Sister Bipolar 1 disorder Social History marital status: number of children: 2 household members: spouse and children lives independently: Yes caregiver/support person: Yes housing: house pets and animals: Yes education level: college occupational status: unemployed current occupational exposures/hazards: No 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 travel history: over 6 months ago seatbelt use: always water heater temp set < 120 deg: Yes working smoke detector in home: Yes fire extinguisher in home: Yes carbon monox detector in home: Yes firearms in home: No do you feel safe at home: Yes Smoking Status: Never smoker second hand exposure: No alcohol intake: former substance use type: does not use during the past year weight has: increased > 10 lbs well-balanced diet: about half the time daily servings fruits/ve-4 caffeine: Yes (aware of 200mg limit) Type(s) of exercise: walking frequency: 5-6 times per week duration: 45-60 minutes/day Evaluation Evaluation Baseline heart rate: 130 Variability: Moderate (11-25) monitor accelerations: Present Monitor Decelerations: Absent Contraction Frequency (minutes): 0 Category of Tracing: Reactive Status: Category l Diagnosis, Plan/Disposition Final Diagnosis (1) Gestational hypertension affecting third : Status: Acute (2) Hypertension affecting in third trimester: Status: Acute (3) 35 weeks gestation of : Status: Acute Plan/Disposition Plan: PIH labs pending but blood pressure better here. Twice weekly NSTs. OB Disposition: home
== END 2022-12-31 17:47 | disposition home or self-care (01) ==
LOC: LABOR 17:24 → OB 01-02 12:50
PROVIDERS: PCP Internal Medicine Cardiovascular Disease; Referring Provider Specialist; Visit Provider Specialist
DX: O13.3 Gestational [pregnancy-induced] hypertension without significant proteinuria, third trimester (principal); Z3A.35 35 weeks gestation of pregnancy; O16.3 Unspecified maternal hypertension, third trimester
CPT/HCPCS: 36415; 59025; 82565; 84450; 84460; 84520; 84550; 85025; G0378; G0379

== ENCOUNTER → 2022-12-31 17:01 | Outpatient (CLI) | payer OTHER, MEDICAID, SELFPAY ==
[2022-12-31 17:42] LABS: Add Manual Diff / Slide Review NO; Basophils Absolute Auto 0 /uL (0-100); Basophils Percent Auto 0.2 % (0-2); Eosinophils Absolute Auto 0 /uL (0-450); Eosinophils Percent Auto 0.4 % (2-4); Hematocrit 35.3 % (36-46); Hemoglobin 12.3 g/dL (12.0-16.0); Lymphocytes Absolute Auto 1900 /uL (1100-4500); Lymphocytes Percent Auto 19.1 % (25-40); Mean Corpuscular HGB Conc 34.8 % (30-36); Mean Corpuscular Hemoglobin 31.9 PG (26-34); Mean Corpuscular Volume 91.8 fL (80-100); Monocytes Absolute Auto 500 /uL (0-900); Monocytes Percent Auto 4.7 % (3-14); Neutrophils Absolute Auto 7500 /uL (1500-7000); Neutrophils Percent Auto 75.6 % (50-75); Platelet Count 250 X10^3/uL (150-400); Red Blood Cell Count 3.85 X10^6/uL (4.0-5.2); Red Cell Distribution Width 13.3 % (11.6-14.8)
[2022-12-31 17:57] LABS: Alanine Aminotransferase 20 IU/L (<35); Aspartate Aminotransferase 24 IU/L (14-36); BUN Creatinine Ratio 13.2 (6-22); Blood Urea Nitrogen 7 mg/dL (7-17); Estimated Glomerular Filt Rate > 60 mL/min (>60); Uric Acid 3.9 mg/dL (2.5-6.2)
== END ==
PROVIDERS: PCP Internal Medicine Cardiovascular Disease; Referring Provider Specialist; Visit Provider Specialist
DX: O16.3 Unspecified maternal hypertension, third trimester (principal)
CPT/HCPCS: 36415; 82565; 84450; 84460; 84520; 84550; 85025

== ENCOUNTER 2023-01-02 17:51 | Observation (INO) | payer OTHER, MEDICAID, SELFPAY ==
[2023-01-02 19:28] LABS: Creatinine Urine Random 88.2 mg/dL; Protein (Total) Urine Random 8 mg/dL (0-12); Protein Creatinine Ratio Urine 0.09 GRAM/24H
[2023-01-02 19:58] LABS: Add Manual Diff / Slide Review NO; Basophils Absolute Auto 0 /uL (0-100); Basophils Percent Auto 0.4 % (0-2); Eosinophils Absolute Auto 0 /uL (0-450); Eosinophils Percent Auto 0.3 % (2-4); Hemoglobin 11.7 g/dL (12.0-16.0); Lymphocytes Absolute Auto 2000 /uL (1100-4500); Lymphocytes Percent Auto 19.8 % (25-40); Mean Corpuscular HGB Conc 34.3 % (30-36); Mean Corpuscular Hemoglobin 31.4 PG (26-34); Mean Corpuscular Volume 91.6 fL (80-100); Monocytes Absolute Auto 600 /uL (0-900); Neutrophils Absolute Auto 7300 /uL (1500-7000); Neutrophils Percent Auto 73.5 % (50-75); Platelet Count 227 X10^3/uL (150-400); Red Blood Cell Count 3.72 X10^6/uL (4.0-5.2); Red Cell Distribution Width 12.9 % (11.6-14.8)
[2023-01-02 20:24] LABS: Alanine Aminotransferase 18 IU/L (<35); Albumin 3.3 g/dL (3.5-5.0); Albumin Globulin Ratio 1.1 (1.0-2.8); Alkaline Phosphatase 79 U/L (38-126); Aspartate Aminotransferase 21 IU/L (14-36); BUN Creatinine Ratio 11.6 (6-22); Bilirubin Total 0.2 mg/dL (0.2-1.3); Blood Urea Nitrogen 5 mg/dL (7-17); Calcium 8.6 mg/dL (8.4-10.2); Carbon Dioxide 21 mmol/L (22-32); Chloride 106 mmol/L (98-107); Estimated Glomerular Filt Rate > 60 mL/min (>60); Globulin 3.1 g/dL (1.7-4.1); Glucose 93 mg/dL (70-100); HEMOLYSIS < 15 (0-50); Potassium 3.6 mmol/L (3.4-5.1); Sodium 133 mmol/L (137-145); Total Protein 6.4 g/dL (6.3-8.2)
--- NOTE | 2023-01-02 20:31 | PM.OBTRLD ---
Visit Information Visit Information Date of evaluation: 01/02/23 On-call OB Provider: Dana Herrera Reason for Evaluation: Yes other Comments/Additional reasons for admission: 32yo at 35+3wks presenting to triage for headache today that was worse than her usual headaches. She also noted increased bilateral lower leg swelling. She denies any vision changes or RUQ pain. She has a hx of gHTN vs. cHTN, and has been on labetalol this . Vital Signs Vital Signs: BP 136/88, P 89, T 36.2 PFSH Medical History Anxiety Chicken pox (~1992) Contraception management Depression Elevated blood pressure reading in office with white coat syndrome, with diagnosis of hypertension Fracture of left wrist Frequent epistaxis (~09/2019) Gestational diabetes Hair loss (~09/2019) Headache Heavy menstrual period Hx of being hospitalized Hypertension affecting in third trimester Migraines Ovarian cyst (~2008) anxiety induced hypertension Rosacea (~2015) Vacuum-assisted vaginal delivery (~06/11/20) Wears glasses Yeast infection (~2018) Surgical History Anesthesia H/O wisdom tooth extraction (~2010) History of tonsillectomy (~1997) Family History Mother Hyperlipidemia Hypertension Lupus (systemic lupus erythematosus) Neuropathy Depression Stroke Grandmother Cancer Lung cancer Smoker Breast cancer Grandfather Unknown whether patient has any health problems Family estrangement Father Unknown whether patient has any health problems Family estrangement Grandfather Family estrangement Unknown whether patient has any health problems Grandmother Breast cancer Family estrangement Family/Other Congenital heart anomaly IV drug user Status post cardiac surgery Sister Bipolar 1 disorder Social History marital status: number of children: 2 household members: spouse and children lives independently: Yes caregiver/support person: Yes housing: house pets and animals: Yes education level: college occupational status: unemployed current occupational exposures/hazards: No 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 travel history: over 6 months ago seatbelt use: always water heater temp set < 120 deg: Yes working smoke detector in home: Yes fire extinguisher in home: Yes carbon monox detector in home: Yes firearms in home: No do you feel safe at home: Yes Smoking Status: Never smoker second hand exposure: No alcohol intake: former substance use type: does not use during the past year weight has: increased > 10 lbs well-balanced diet: about half the time daily servings fruits/ve-4 caffeine: Yes (aware of 200mg limit) Type(s) of exercise: walking frequency: 5-6 times per week duration: 45-60 minutes/day Review of Systems Review of Systems ROS: Yes All systems reviewed with the patient and are negative except as otherwise documented Exam Const General: cooperative, healthy appearing and No acute distress Resp Effort & Inspection: normal respiratory effort OB/External & Speculum: deferred Extrem General: normal to inspection and pedal edema Objective Labs 01/02/23 19:45 01/02/23 19:45 Labs: Laboratory Results - last 24 hr 01/02/23 01/02/23 18:50 19:45 WBC 10.0 RBC 3.72 L Hgb 11.7 L Hct 34.0 L MCV 91.6 MCH 31.4 MCHC 34.3 RDW 12.9 Plt Count 227 Neut % (Auto) 73.5 Lymph % (Auto) 19.8 L [place] % (Auto) 6.0 Eos % (Auto) 0.3 L Baso % (Auto) 0.4 Neut # (Auto) 7300 H Lymph # (Auto) 2000 [place] # (Auto) 600 Eos # (Auto) 0 Baso # (Auto) 0 Sodium 133 L Potassium 3.6 Chloride 106 Carbon Dioxide 21 L BUN 5 L Creatinine 0.43 L Estimated GFR > 60 BUN/Creatinine Ratio 11.6 Glucose 93 Calcium 8.6 Total Bilirubin 0.2 AST 21 ALT 18 Alkaline Phosphatase 79 Total Protein 6.4 Albumin 3.3 L Globulin 3.1 Albumin/Globulin Ratio 1.1 U Random Total Protein 8 Urine Creatinine 88.2 Protein/Creatinin Ratio 0.09 Evaluation Evaluation Baseline heart rate: 120 Variability: Moderate (11-25) monitor accelerations: Present Monitor Decelerations: Absent Category of Tracing: Reactive Diagnosis, Plan/Disposition Final Diagnosis (1) Hypertension affecting in third trimester: Status: Acute (2) 35 weeks gestation of : Status: Acute Plan/Disposition Plan: 32yo at 35+3wks evaluated in triage for r/o pre-e. Labs unremarkable, blood pressures normal-mild range in triage. -encouraged to f/u in triage if her symptoms worsen or she develops new symptoms -otherwise f/u in clinic to determine timing of IOL OB Disposition: home
== END 2023-01-02 20:25 | disposition home or self-care (01) ==
LOC: LABOR 17:54
PROVIDERS: Student in an Organized Health Care Education/Training Program; Admitting Provider Obstetrics & Gynecology; PCP Internal Medicine Cardiovascular Disease; Referring Provider Obstetrics & Gynecology; Visit Provider Obstetrics & Gynecology
DX: O16.3 Unspecified maternal hypertension, third trimester (principal); Z3A.35 35 weeks gestation of pregnancy
CPT/HCPCS: 59025; 59050; 80053; 82570; 84156; 85025; G0378; G0379

== ENCOUNTER → 2023-01-08 09:56 | Outpatient (CLI) | payer OTHER, MEDICAID, SELFPAY ==
[2023-01-09 13:14] LABS: Strep Grp B PCR NEG for Grp B Strep
== END ==
PROVIDERS: Visit Provider Obstetrics & Gynecology
DX: Z34.90 Encounter for supervision of normal pregnancy, unspecified, unspecified trimester (principal); Z3A.36 36 weeks gestation of pregnancy
CPT/HCPCS: 87653

== ENCOUNTER → 2023-01-08 10:17 | Outpatient (CLI) | payer OTHER, MEDICAID, SELFPAY ==
[2023-01-08 10:39] LABS: Add Manual Diff / Slide Review NO; Basophils Absolute Auto 100 /uL (0-100); Basophils Percent Auto 0.6 % (0-2); Eosinophils Absolute Auto 100 /uL (0-450); Eosinophils Percent Auto 0.7 % (2-4); Hematocrit 35.9 % (36-46); Hemoglobin 12.3 g/dL (12.0-16.0); Lymphocytes Absolute Auto 1700 /uL (1100-4500); Lymphocytes Percent Auto 17.4 % (25-40); Mean Corpuscular HGB Conc 34.3 % (30-36); Mean Corpuscular Hemoglobin 31.4 PG (26-34); Mean Corpuscular Volume 91.7 fL (80-100); Monocytes Absolute Auto 500 /uL (0-900); Monocytes Percent Auto 5.2 % (3-14); Neutrophils Absolute Auto 7400 /uL (1500-7000); Neutrophils Percent Auto 76.1 % (50-75); Platelet Count 247 X10^3/uL (150-400); Red Blood Cell Count 3.91 X10^6/uL (4.0-5.2); White Blood Cell Count 9.7 X10^3/uL (4.5-11.0)
[2023-01-08 10:56] LABS: Alanine Aminotransferase 19 IU/L (<35); Aspartate Aminotransferase 36 IU/L (14-36); Blood Urea Nitrogen 8 mg/dL (7-17); Estimated Glomerular Filt Rate > 60 mL/min (>60); Uric Acid 3.6 mg/dL (2.5-6.2)
[2023-01-08 14:36] LABS: Protein (Total) Urine Random 10 mg/dL (0-12)
== END ==
PROVIDERS: Referring Provider Obstetrics & Gynecology; Visit Provider Obstetrics & Gynecology
DX: O13.9 Gestational [pregnancy-induced] hypertension without significant proteinuria, unspecified trimester (principal); Z3A.35 35 weeks gestation of pregnancy
CPT/HCPCS: 36415; 82565; 84156; 84450; 84460; 84520; 84550; 85025

== ENCOUNTER 2023-01-08 11:01 | Outpatient (CLI) | payer OTHER, MEDICAID, SELFPAY | END 2023-01-08 11:47 | disposition home or self-care (01) | LOC: LABOR 11:33 → OB 01-10 16:58 | PROVIDERS: Referring Provider Obstetrics & Gynecology; Visit Provider Obstetrics & Gynecology | DX: O13.3 Gestational [pregnancy-induced] hypertension without significant proteinuria, third trimester (principal); Z3A.36 36 weeks gestation of pregnancy; Z34.90 Encounter for supervision of normal pregnancy, unspecified, unspecified trimester; O13.9 Gestational [pregnancy-induced] hypertension without significant proteinuria, unspecified trimester; Z3A.35 35 weeks gestation of pregnancy | CPT/HCPCS: 36415; 59025; 82565; 84156; 84450; 84460; 84520; 84550; 85025; 87653; G0378; G0379 ==

== ENCOUNTER 2023-01-10 16:00 | Outpatient (CLI) | payer OTHER, MEDICAID, SELFPAY | END 2023-01-10 16:40 | disposition home or self-care (01) | LOC: LABOR 16:34 → OB 01-15 12:07 | PROVIDERS: Referring Provider Obstetrics & Gynecology; Visit Provider Obstetrics & Gynecology | DX: O13.3 Gestational [pregnancy-induced] hypertension without significant proteinuria, third trimester (principal); Z3A.36 36 weeks gestation of pregnancy | CPT/HCPCS: 59025; G0378; G0379 ==

== ENCOUNTER 2023-01-13 19:41 | Inpatient (IN) | payer OTHER, MEDICAID, SELFPAY ==
[2023-01-13] MEDS: DINOPROSTONE VAG (CERVIDIL) 10 MG VAG (22:00)
[2023-01-13 23:08] LABS: Add Manual Diff / Slide Review NO; Basophils Absolute Auto 0 /uL (0-100); Basophils Percent Auto 0.1 % (0-2); Eosinophils Absolute Auto 0 /uL (0-450); Eosinophils Percent Auto 0.3 % (2-4); Hematocrit 34.5 % (36-46); Hemoglobin 11.9 g/dL (12.0-16.0); Lymphocytes Absolute Auto 1700 /uL (1100-4500); Lymphocytes Percent Auto 17.1 % (25-40); Mean Corpuscular HGB Conc 34.5 % (30-36); Mean Corpuscular Hemoglobin 31.6 PG (26-34); Mean Corpuscular Volume 91.7 fL (80-100); Monocytes Absolute Auto 500 /uL (0-900); Monocytes Percent Auto 5.6 % (3-14); Neutrophils Absolute Auto 7600 /uL (1500-7000); Neutrophils Percent Auto 76.9 % (50-75); Platelet Count 230 X10^3/uL (150-400); Red Blood Cell Count 3.77 X10^6/uL (4.0-5.2); Red Cell Distribution Width 13.1 % (11.6-14.8); White Blood Cell Count 9.8 X10^3/uL (4.5-11.0)
[2023-01-13 23:11] LABS: Uric Acid 4.7 mg/dL (2.5-6.2)
[2023-01-13 23:14] LABS: Alanine Aminotransferase 19 IU/L (<35); Albumin 3.3 g/dL (3.5-5.0); Albumin Globulin Ratio 1.2 (1.0-2.8); Alkaline Phosphatase 84 U/L (38-126); Aspartate Aminotransferase 22 IU/L (14-36); BUN Creatinine Ratio 10.3 (6-22); Bilirubin Total 0.2 mg/dL (0.2-1.3); Blood Urea Nitrogen 10 mg/dL (7-17); Carbon Dioxide 18 mmol/L (22-32); Chloride 106 mmol/L (98-107); Estimated Glomerular Filt Rate > 60 mL/min (>60); Globulin 2.7 g/dL (1.7-4.1); Glucose 131 mg/dL (70-100); HEMOLYSIS < 15 (0-50); Potassium 3.7 mmol/L (3.4-5.1); Sodium 134 mmol/L (137-145)
[2023-01-13 23:24] LABS: Creatinine Urine Random 291.6 mg/dL
[2023-01-13 23:26] LABS: Protein (Total) Urine Random < 5 mg/dL (0-12); Protein Creatinine Ratio Urine 0.01 GRAM/24H
[2023-01-13] MEDS: ACETAMINOPHEN 325 MG TABLET 1000 MG PO (23:46)
[2023-01-13] MEDS: CALCIUM CARBONATE 500 MG TAB 1000 MG PO (23:46)
[2023-01-13] MEDS: LABETALOL 100 MG TABLET 200 MG PO (23:46)
[2023-01-13] MEDS: ZOLPIDEM 5 MG TABLET 10 MG PO (23:46)
[2023-01-14 08:54] VITALS: BP 132/84; PULSE 88
[2023-01-14] MEDS: LABETALOL 100 MG TABLET 200 MG PO ×3 (08:54→21:11)
--- NOTE | 2023-01-14 08:56 | P.HPOB_ITS ---
OB HPI Date/Time Date of admission: 01/13/23 Date Patient Seen: 01/14/23 Time Patient Seen: 08:32 History of Present Condition Chief complaint: OB BRITTNEY Calculator 2 Estimated Delivery Date Method Current WG Current Estimate 02/03/23 LMP (Certain) 37w 1d Other Estimates 02/02/23 Ultrasound #1 37w 2d Estimated Gestational Age (weeks): 37+1 : 3 Para: 2 care: good care, initiated at week # (8), number of visits (13) and pounds weight gain (26) Dating criteria OB: LMP confirmed by 2nd trimester US Ultrasounds: normal 1st trimester US and normal mid trimester US (OFT's not well seen) Obstetrical complications: gestational diabetes and gestational hypertension (h/o preeclampsia) Medical complications OB: none Indications Indication for induction OB: gestational HTN/pre-eclampsia Preadmission Labs Last OB Lab Results: 2 Blood Type O Positive 01/13/23 21:45 Antibody Screen Negative 01/13/23 21:45 Hematocrit 34.5 % (36-46) L 01/13/23 21:45 Hemoglobin 11.9 g/dL (12.0-16.0) L 01/13/23 21:45 Hepatitis B Surface Antigen Negative s/c (NEGATIVE) 07/24/22 11 :18 Hepatitis C Antibody Negative s/c (NEGATIVE) 07/24/22 11:18 Rubella Antibody 13.6 IU/mL (>15) L 07/24/22 11:18 Varicella-Zoster IgG Antibody 2488 index (Immune >165) 07/24/22 11:18 Glucose 1 Hour 142 mg/dL (76-139) H 07/19/21 09:12 Group B Streptococcus (PCR) Neg for grp b strep 01/08/23 09:56 -: Chlamydia screen: negative, Gonorrhea screen: negative and Urine: negative -: PAP smear: Normal (2020) Genetic Screens: Cell-free DNA: Normal (normal female) and Alpha-fetoprotein: Normal External Labs -: Urine: negative Prior (ies) Past Pregnancies Del. Date GA/Weeks Labor Lgth Wt Sex Route Outcome Anesthesia Place Delv Breastfeed Preg Comp Name 06/11/20 38.1 6 5 lb 6 oz Male vaginal live - full ter m epidural [facility] Dr. Lawson Formula induced hyper- gestational diabetes [place] 09/20/21 37 2 5 lb 13.4 oz Female vaginal vacuum live - full term [facility] none-formula fe eding induced hyper- Juanito Delivery Date: 06/11/20 Last Updated by: Jamilah Yo R.N. Increased swelling & high BP without urine protein. Induction for GDM, HTN. Laguna bulb, Pitocin. AROM with placement of laguna. HTN resolved after . Evaluation Evaluation Baseline heart rate: 135 Variability: Moderate (11-25) monitor accelerations: Present Monitor Decelerations: Absent Uterine Contraction Intensity: Mild PFSH Medical History Anxiety Chicken pox (~1992) Contraception management Depression Elevated blood pressure reading in office with white coat syndrome, with diagnosis of hypertension Fracture of left wrist Frequent epistaxis (~09/2019) Gestational diabetes Hair loss (~09/2019) Headache Heavy menstrual period Hx of being hospitalized Hypertension affecting in third trimester Migraines Ovarian cyst (~2008) anxiety induced hypertension Rosacea (~2015) Vacuum-assisted vaginal delivery (~06/11/20) Wears glasses Yeast infection (~2018) Surgical History Anesthesia H/O wisdom tooth extraction (~2010) History of tonsillectomy (~1997) Family History Mother Hyperlipidemia Hypertension Lupus (systemic lupus erythematosus) Neuropathy Depression Stroke Grandmother Cancer Lung cancer Smoker Breast cancer Grandfather Unknown whether patient has any health problems Family estrangement Father Unknown whether patient has any health problems Family estrangement Grandfather Family estrangement Unknown whether patient has any health problems Grandmother Breast cancer Family estrangement Family/Other Congenital heart anomaly IV drug user Status post cardiac surgery Sister Bipolar 1 disorder Social History marital status: number of children: 2 household members: spouse and children lives independently: Yes caregiver/support person: Yes housing: house pets and animals: Yes education level: college occupational status: unemployed current occupational exposures/hazards: No 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 travel history: over 6 months ago seatbelt use: always water heater temp set < 120 deg: Yes working smoke detector in home: Yes fire extinguisher in home: Yes carbon monox detector in home: Yes firearms in home: No do you feel safe at home: Yes Smoking Status: Never smoker second hand exposure: No alcohol intake: former substance use type: does not use during the past year weight has: increased > 10 lbs well-balanced diet: about half the time daily servings fruits/ve-4 caffeine: Yes (aware of 200mg limit) Type(s) of exercise: walking frequency: 5-6 times per week duration: 45-60 minutes/day Meds Home Medications and Allergies Home Medications Medication Instructions Recorded Confirmed Type prenat.vits,cosmo,qlb-xadv-nvojh 1 tab PO DAILY 02/16/21 01/08/23 History blood sugar diagnostic (Contour #100 ea 08/24/22 01/08/23 Rx Next Test Strips) labetalol 100 mg tablet 100 mg PO BID Hypertension #60 tabs 10/15/22 01/08/23 Rx aspirin 81 mg tablet,delayed 81 mg PO DAILY 11/06/22 01/08/23 History release (Adult Low Dose Aspirin) labetalol 200 mg tablet 200 mg PO BID High blood pressure 12/21/22 01/08/23 Rx #60 tabs Allergies Allergy/AdvReac Type Severity Reaction Status Date / Time No Known Drug Allergies Allergy Verified 01/08/23 09:49 OB Exam Narrative Exam Narrative: Generally: Patient comfortable, no acute distress Fundal height: 38 cm Estimated weight: 6 lb Extremities: 1+ edema, 1+ DTRs Objective Labs 01/13/23 21:45 01/13/23 21:45 Labs: Laboratory Results - last 24 hr 01/13/23 21:45 WBC 9.8 RBC 3.77 L Hgb 11.9 L Hct 34.5 L MCV 91.7 MCH 31.6 MCHC 34.5 RDW 13.1 Plt Count 230 Neut % (Auto) 76.9 H Lymph % (Auto) 17.1 L [place] % (Auto) 5.6 Eos % (Auto) 0.3 L Baso % (Auto) 0.1 Neut # (Auto) 7600 H Lymph # (Auto) 1700 [place] # (Auto) 500 Eos # (Auto) 0 Baso # (Auto) 0 Sodium 134 L Potassium 3.7 Chloride 106 Carbon Dioxide 18 L BUN 10 Creatinine 0.97 Estimated GFR > 60 BUN/Creatinine Ratio 10.3 Glucose 131 H Uric Acid 4.7 Calcium 9.0 Total Bilirubin 0.2 AST 22 ALT 19 Alkaline Phosphatase 84 Total Protein 6.0 L Albumin 3.3 L Globulin 2.7 Albumin/Globulin Ratio 1.2 U Random Total Protein < 5 Urine Creatinine 291.6 Protein/Creatinin Ratio 0.01 Blood Type O Positive Antibody Screen Negative Assessment and Plan Assessment and Plan Assessment and Plan narrative: Assessment: 32-year-old 3 para 2 at 37-,1/7 weeks gestation status post Cervidil x1 Favorable cervix Gestational hypertension Plan: Pitocin per protocol 2 Artificial rupture of membranes when able Epidural as necessary Expected management to spontaneous vaginal delivery Time Spent with Patient Total time spent with greater than 50% in coordination of care (as documented) at patient's floor/unit and/or counseling patient:: 15-24 minutes
[2023-01-14] MEDS: OXYTOCIN PREMIX 30 UNIT/500 ML PLAST..BAG IV (10:15)
[2023-01-14] MEDS: LACTATED RINGERS 1,000 ML 100 ML IV ×2 (10:16→18:30)
[2023-01-14] MEDS: ACETAMINOPHEN 325 MG TABLET 1000 MG PO ×2 (10:59→18:30)
[2023-01-14] MEDS: CALCIUM CARBONATE 500 MG TAB 1000 MG PO ×3 (11:58→18:31)
[2023-01-14] MEDS: FENT 2MCG/ML BUPIV 0.1% EPI 200 MCG/100 ML PLAST..BAG 8 MCG EPIDURAL ×2 (14:05→18:31)
--- NOTE | 2023-01-14 14:14 | PM.AN.REGBLK ---
Regional Block Pre-procedure PMH/ROS narrative: active labor PSH/Anesthesia history narrative: epidural x 2, no issues Labs: Hct 34.5 % (36-46) L 01/13/23 21:45 Plt Count 230 X10^3/uL (150-400) 01/13/23 21:45 Medications: Current Medications Generic Name Dose Route Start Last Admin Trade Name Freq PRN Reason Stop Dose Admin Acetaminophen 1,000 mg 01/13/23 23:35 01/14/23 10:59 Acetaminophen 325 Mg Tablet PO 975 mg Q8H PRN Administration Fever/Mild Pain (1-3) Calcium Carbonate 1,000 mg 01/13/23 20:39 01/14/23 11:58 Calcium Carbonate 500 Mg Tab PO 1,000 mg Q4HR PRN Administration Dyspepsia Carboprost Tromethamine 250 mcg 01/13/23 20:39 Carboprost 250 Mcg/Ml Ampul IM Q90M PRN Bleeding Fentanyl 50 mcg 01/13/23 20:39 Fentanyl 100 Mcg/2 Ml Inj IV Q1H PRN Pain, Moderate (4-6) Tranexamic Acid 1,000 mg/ 100 mls @ 200 mls/hr 01/13/23 20:39 Sodium Chloride IV NOW PRN Bleeding Oxytocin/Lactated Ringer's 30 unit in 500 mls @ 2 mls/hr 01/13/23 20:45 01/14/23 10:15 Oxytocin Premix IV 2 milliunit/min TITRATE AVELINO 2 mls/hr Administration Protocol 2 MILLIUNIT/MIN Lactated Ringer's 1,000 mls @ 100 mls/hr 01/13/23 20:45 01/14/23 10:16 Lactated Ringers IV 100 mls/hr CONT AVELINO Administration Oxytocin/Lactated Ringer's 30 unit in 500 mls @ 200 mls/hr 01/13/23 20:39 Oxytocin Premix IV CONT PRN Bleeding Protocol Labetalol HCl 200 mg 01/13/23 23:45 01/14/23 08:54 Labetalol 100 Mg Tablet PO 200 mg TID AVELINO Administration Lidocaine HCl 20 ml 01/13/23 20:39 Lidocaine 1% 20 Ml INJ INTRA-OP PRN Post Delivery Methylergonovine Maleate 0.2 mg 01/13/23 20:39 Methylergonovine 0.2 Mg/Ml Vial IM NOW PRN Bleeding Methylergonovine Maleate 0.2 mg 01/13/23 20:39 Methylergonovine 0.2 Mg Tablet PO Q6HR PRN Heavy Bleeding Misoprostol 400 mcg 01/13/23 20:39 Misoprostol 200 Mcg Tablet SL NOW PRN Bleeding Misoprostol 800 mcg 01/13/23 20:39 Misoprostol 200 Mcg Tablet [place] NOW PRN Bleeding Naloxone HCl 0.2 mg 01/13/23 20:39 Naloxone 0.4 Mg/Ml Vial IV Q2MIN PRN Opiate Reversal Ondansetron HCl 4 mg 01/13/23 20:39 Ondansetron 4 Mg/2 Ml Inj IV Q4HR PRN Nausea And Vomiting Oxytocin 10 unit 01/13/23 20:39 Oxytocin 10 Unit/Ml Vial IM NOW PRN Bleeding Zolpidem Tartrate 10 mg 01/13/23 23:35 01/13/23 23:46 Zolpidem 5 Mg Tablet PO 10 mg BEDTIME PRN Administration Sleep Allergies: Allergies Allergy/AdvReac Type Severity Reaction Status Date / Time No Known Drug Allergies Allergy Verified 01/08/23 09:49 Procedure Insertion date: 01/14/23 Insertion time: 13:50 Prep/Local: betadine x3 (chlorhexadine ) and 1% lidocaine Interspace: L3, L4 Patient position: sitting Needle: 17 gauge Tuohy Loss of resistance with: saline JESSICA at (cm): 5 Catheter placed at SKIN (cm): 12 Sensory level: t10 Initial Medications TEST DOSE time: 13:52 TEST DOSE: 1.5% lidocaine with epinephrine 1:200k (mL): 3 BOLUS DOSE (mL): 23 BOLUS DOSE med: 0.125% bupivacaine with fentanyl 10 mcg/mL Infusion INFUSION: 0.125% bupivacaine and with fentanyl 2 mcg/mL Initial rate (mL/hr): 8 Subsequent interventions: none Post-procedure Anesthesia time START: 13:35 Anesthesia time END: 22:43 Post-procedure Anesthesia Assessment: Yes CV function: HR/BP stable, Yes Resp function: RR/sat/airway adequate, Yes Post-op hydration adequate, Yes Pain control adequate, Yes Nausea & vomiting absent, Yes Temperature > 36 C, Yes Mental status appropriate and Yes Anesthesia complications
[2023-01-14 14:41] VITALS: BP 142/91; PULSE 75
[2023-01-14] MEDS: ONDANSETRON 4 MG/2 ML INJ IV ×2 (15:36→21:16)
--- NOTE | 2023-01-14 17:19 | PM.OBPNLAB ---
Date/Time Date Patient Seen: 01/14/23 Time Patient Seen: 13:30 Pain Control Pain control: tolerating well Pelvic Exam Dilation (cm): 2 Effacement (%): 85 station: 0 Amniotic membrane status: Intact Contractions Contractions on admission: none Monitor mode: External Pitocin rate (mU/min): 12 Contraction frequency (min): 4 Contraction pattern: Regular Contraction intensity: Mild Status status: Category l Heart Rate Baseline: 125 Monitor Accelerations: Present Monitor Decelerations: Absent Monitor Variability: Moderate Assessment and Plan Assessment: induction ongoing Comments: AROM with clear amniotic fluid Epidural as needed Expectant management to
--- NOTE | 2023-01-14 17:21 | PM.OBPNLAB ---
Date/Time Date Patient Seen: 01/14/23 Time Patient Seen: 17:21 Pain Control Pain control: epidural Comments: IUPC placed by Dr. Herrera due to difficulty picking up contractions Pelvic Exam Dilation (cm): 2 Effacement (%): 85 station: 0 Amniotic membrane status: Intact Contractions Monitor mode: External Pitocin rate (mU/min): 16 Contraction frequency (min): 3 Contraction duration (min): 1 Contraction pattern: Regular Contraction phase: Resting Contraction intensity: Mild Intrauterine tone measurement: 220 Status status: Category l Heart Rate Baseline: 115 Monitor Accelerations: Present Monitor Decelerations: Absent Monitor Variability: Moderate Assessment and Plan Assessment: induction ongoing Comments: Recheck at 10:00 p.m. If no significant change will discontinue the Pitocin for few hours and then restart
[2023-01-14 21:11] VITALS: BP 119/76; PULSE 88
[2023-01-14 22:15] VITALS: BP 94/56; PULSE 75
--- NOTE | 2023-01-14 22:57 | PM.OBPRVD ---
Events: Labor Induction Labor & Delivery Delivery date: 01/14/23 Intrapartal Events: Intolerance (at delivery) Cervical ripening method: per misoprostal protocol Induction method: per pitocin protocol Delivery augmentation: rupture of membranes Delivery monitor: external FHT and external uterine Route of delivery: vacuum extraction Indication for instrumentation: nonreassuring FHR tracing (deep variable decels at delivery) Episiotomy description: None L&D Laceration Description: None Quantitative Blood Loss: 100 Anesthesia Type: Epidural Complications: None Narrative: Patient complete and pushed for 10 minutes. A vacuum was applied due to deep variable decelerations. At 10:43 p.m., a live female infant delivered spontaneously in the direct occiput posterior presentation with 1 pull on the vacuum. The vacuum was removed. The remainder of the body delivered without difficulties and was placed on mom's abdomen. The cord was double clamped and cut after the cord stopped pulsing. Cord bloods were obtained. Pitocin was given in the IV fluids. The placenta delivered intact with a three-vessel cord at 10:49 p.m.. QBL 179 cc. Apgars 8 at 1 minute and 9 at 5 minutes. Weight 5 lb 9 oz. . Mom and stable to recovery. No lacerations. [place] Baby 1: Infant gender: Female Presentation: vertex Position: Right Occiput Anterior Placenta delivery description: Spontaneous Cord Vessel Description: 3 Vessels score (1 min): 8 score (5 min): 9 weight: 5 lb 9 oz Plan for aftercare: Routine care
[2023-01-15] MEDS: ACETAMINOPHEN 325 MG TABLET 650 MG PO ×3 (02:59→16:04)
[2023-01-15] MEDS: IBUPROFEN 600 MG TABLET PO ×3 (02:59→15:52)
[2023-01-15] MEDS: CALCIUM CARBONATE 500 MG TAB PO (03:44)
[2023-01-15 06:45] LABS: Hematocrit 35.5 % (36-46); Hemoglobin 12.1 g/dL (12.0-16.0)
[2023-01-15] MEDS: PRENATAL VIT,CALC/IRON/FOLIC 1 TABLET 1 TAB PO (09:26)
[2023-01-15] MEDS: DOCUSATE 100 MG CAPSULE PO (09:26)
[2023-01-15 09:27] VITALS: TEMP 36.5
[2023-01-15 09:28] VITALS: TEMP 36.4
[2023-01-15 15:52] VITALS: TEMP 36.3
[2023-01-15 16:04] VITALS: TEMP 36.3
[2023-01-15 18:44] VITALS: BP 94/56; PULSE 75; TEMP 36.3
--- NOTE | 2023-01-27 19:19 | PM.OBDS.1 ---
Discharge Providers Provider Date of admission: 01/13/23 19:41 Discharge Date: 01/15/23 Primary care physician: Doctor Joby MD Consults: 01/13/23 20:39 Consult to Anesthesiology Urgent Comment: Consulting Provider: Anesthesiologist Reason for consultation: Epidural Has provider been notified: No Discharge provider: Indy Vu MD Summary Hospital Course Date Patient Seen: 01/15/23 Time Patient Seen: 12:45 Diagnoses: 37+1 weeks gestation Cervical ripening with Cervidil Induction of labor with Pitocin Gestational hypertension Vacuum assisted vaginal delivery intolerance of labor Hospital Course: Patient is a 32 year old who presented on 01/13/23 for cervical ripening with Cervidil. Induction due to Gestational hypertension. On 01/14/23, Pitocin started with a favorable cervix. Patient received an epidural for pain management. She progesssed to complete dilation. There were deep variable decels and a vacuum was applied. Infant delivered in direct OP presentation. No lacerations. course was unremarkable and she was discharged to home on 01/15/23. Peripartum Data Delivery Method: Assisted Delivery (vacuum) Laceration Description: None Procedures: Cervidil cervical ripening Pitocin induction of labor Epidural analgesia Artificial rupture of membranes Vacuum assisted vaginal delivery complications: none 1: Gender: Female Disposition of : home Status at Discharge Cognitive/behavioral status at discharge: oriented Functional status at discharge: independent ambulation Overall status at discharge: patient is progressing back to baseline Time Spent with Patient Time attestation: Total time spent providing and/or coordinating discharge services: Time spent: Less than 30 minutes Objective Labs 01/15/23 06:16 01/13/23 21:45 Exam Narrative Exam Narrative: Generally: Patient is sitting up in bed, holding infant, no acute distress Fundus: Firm at U-2 Extremities: Negative Homans, no edema Discharge Plan Discharge Plan Patient Disposition: Home Provider Discharge Comment: Call with fever, chills, or bleeding vaginally more than a pad in an hour Ibuprofen 600 mg every 6 hours as needed for cramping Discharge orders & Medications Prescriptions: Continued prenat.vits,cosmo,[id number] Tablet 1 tab PO DAILY labetalol 200 mg tablet 200 mg PO BID Qty: 60 5RF Discontinued labetalol 100 mg tablet 100 mg PO BID Qty: 60 6RF aspirin [Adult Low Dose Aspirin] 81 mg tablet,delayed release (DR/EC) 81 mg PO DAILY Follow up/Referrals: Indy Vu MD [Physician] - ( Appt w/ Dr. Vu: @ 9:30am (please check in at 9:15am)) Diet/Activity/Treatments Diet: Regular Activity: Nothing in the vagina for 6 weeks Skin/Wound/Dressing Care Report to your healthcare provider any signs of infection, such as:: chills, fever, increased pain and unusual drainage Visit Report/Discharge Packet Instructions: DI for Labor and Delivery, Vaginal Stand Alone Forms: Discharge: Care, Patient Portal/API, Stroke Signs & Symptoms Discharge Data Primary Care Provider: Miscellaneous,Doctor
== END 2023-01-15 19:18 | disposition home or self-care (01) | DRG 560 ==
PROVIDERS: Admitting Provider Obstetrics & Gynecology; Referring Provider Obstetrics & Gynecology; Visit Provider Obstetrics & Gynecology
DX: O24.420 Gestational diabetes mellitus in childbirth, diet controlled (principal); O13.4 Gestational [pregnancy-induced] hypertension without significant proteinuria, complicating childbirth; Z3A.37 37 weeks gestation of pregnancy; Z37.0 Single live birth; O76 Abnormality in fetal heart rate and rhythm complicating labor and delivery
CPT/HCPCS: 36415; 59050; 59200; 59409; 80053; 82570; 84156; 84550; 85014; 85018; 85025; 86850; 86900; 86901; G0379; J2405; J2590